=== PATIENT | female | born 1995 | race Caucasian/White ===

== ENCOUNTER 2017-01-16 15:37 | Inpatient (IN) | payer OTHER ==
[~2017-01-16] VITALS: Ht 171.4 cm; Wt 81.6 kg
[2017-01-16] MEDS ORDERED: FENTANYL PF 100 MCG/2 ML VIAL. IV PRN (16:15)
[2017-01-16] MEDS ORDERED: ONDANSETRON PF 4 MG/2 ML VIAL. IV ONE ×2 (16:15)
[2017-01-16 16:25] LABS: BILIRUBIN,URINE MODERATE (NEG); GLUCOSE,URINE NEGATIVE (NEG); NITRITE,URINE NEGATIVE (NEG); PH,URINE 6.5; PROTEIN,URINE NEGATIVE (NEG-TRACE)
[2017-01-16 16:40] LABS: BASO % 0 % (0-3); EOS % 1 % (0-3); HEMATOCRIT 43.3 % (36.0-47.0); HEMOGLOBIN 14.5 g/dL (12.0-15.5); LYMPH # 1.4 x10^3/uL (1.0-4.8); LYMPH % 13 % (24-48); MEAN CORPUSCULAR HEMOGLOBIN 30 pg (25-35); MEAN CORPUSCULAR HGB CONC 34 g/dL (31-37); MEAN CORPUSCULAR VOLUME 90 fL (79-100); MONO % 8 % (0-9); NEUT % 78 % (31-73); PLATELET COUNT 322 x10^3/uL (140-400); RED CELL DISTRIBUTION WIDTH 13.6 % (11.5-14.5); WHITE BLOOD COUNT 11.6 x10^3/uL (4.0-11.0)
[2017-01-16 16:41] LABS: BACTERIA,URINE 0 /HPF (0-FEW); RBC,URINE 0 /HPF (0-2); SQUAMOUS EPITHELIAL CELL,UR OCC /LPF; WBC,URINE OCC /HPF (0-4)
[2017-01-16 16:53] LABS: CALCIUM 9.2 mg/dL (8.5-10.1); CREATININE 0.7 mg/dL (0.6-1.0); GFR 103.7; POTASSIUM 3.8 mmol/L (3.5-5.1)
[2017-01-16 16:59] LABS: ALBUMIN 4.3 g/dL (3.4-5.0); ALBUMIN/GLOBULIN RATIO 1.1 (1.0-1.7); TOTAL BILIRUBIN 3.8 mg/dL (0.2-1.0); TOTAL PROTEIN 8.2 g/dL (6.4-8.2)
[2017-01-16 17:25] LABS: NEG OBC UR NEG; POS OBC UR POS
--- NOTE | 2017-01-16 17:53 | RAD ---
PROCEDURE Right upper quadrant abdominal ultrasound. HISTORY Right upper quadrant pain. TECHNIQUE Transabdominal imaging was performed. COMPARISON None. FINDINGS Visualized pancreas is unremarkable. Visualized aorta and IVC demonstrate normal caliber. Liver is mildly increased in echogenicity. No focal hepatic masses are identified. Right hepatic lobe measures 16.6 centimeters in length, mildly enlarged. Cholelithiasis is seen. No cholecystitis is identified. Common bile duct has normal caliber at 5 millimeters. Right kidney measures 12.6 centimeters in length. Right kidney is without evidence of obstruction or stone. IMPRESSION 1. Cholelithiasis without evidence cholecystitis. 2. Mildly echogenic, mildly enlarged liver, compatible with fatty liver disease. Electronically signed by: Marco Bloom MD (Jan 16, 2017 17:50:29)
[2017-01-16] MEDS ORDERED: ONDANSETRON PF 4 MG/2 ML VIAL. IV PRN (18:15)
--- NOTE | 2017-01-16 18:18 | PHYS DOC ---
Past Medical History Past Medical History: No Pertinent History Past Surgical History: No Surgical History Alcohol Use: Occasionally Drug Use: None Adult General Chief Complaint Chief Complaint: ABDOMINAL PAIN HPI HPI Patient is a 21 year old female who presents with abdominal pain. Patient reports 2 year history of right upper quadrant and epigastric abdominal pain, worsening significantly over the past 2 weeks. Reports nausea and vomiting several times daily, though only nausea today without vomiting. Reports worse after eating eggs. Denies fevers or chills, diarrhea or constipation, hematemesis, hematochezia or melena, dysuria or hematuria, vaginal bleeding or discharge. Denies past medical history, denies history of abdominal surgeries. Denies use of alcohol. PCP is Dr. Keys. Review of Systems Review of Systems Constitutional: Denies fever or chills HENT: Denies nasal congestion or sore throat Respiratory: Denies cough or shortness of breath Cardiovascular: Denies chest pain or edema GI: Reports abdominal pain, nausea, vomiting, denies bloody stools or diarrhea : Denies dysuria or hematuria Musculoskeletal: Denies back pain or joint pain Integument: Denies rash or skin lesions Neurologic: Denies headache, focal weakness or sensory changes Current Medications Current Medications Current Medications Medications (Trade) Dose Ordered Sig/Alexandra Start Time Stop Time Status Last Admin Dose Admin Fentanyl Citrate (Fentanyl 2ml Vial) 50 mcg PRN Q15MIN PRN 01/16/17 16:15 01/17/17 16:14 01/16/17 16:50 50 MCG Ondansetron HCl (Zofran) 4 mg 1X ONCE 01/16/17 16:15 01/16/17 16:16 DC 01/16/17 16:47 4 MG Allergies Allergies Allergies Coded Allergies Type Severity Reaction Last Updated Verified No Known Drug Allergies 01/16/17 No Physical Exam Physical Exam Constitutional: Well developed, well nourished, no acute distress, non-toxic appearance. HENT: Normocephalic, atraumatic, bilateral external ears normal, oropharynx moist, nose normal. Eyes: conjunctiva normal, no discharge. Cardiovascular: RRR, no murmurs, no edema. Lungs & Thorax: LCTAB, no wheezing, no respiratory distress. Abdomen: normal bowel sounds, soft, RUQ & epigastric tenderness without rebound/ guarding, no masses or pulsatile masses, nondistended. Skin: Warm, dry, no erythema, no rash. Back: No CVA tenderness. Extremities: No tenderness, no edema. Neurologic: Alert and oriented X 3, no focal deficits noted. Psychologic: Affect normal, judgement normal, mood normal. Current Patient Data Vital Signs Vital Signs Date Time Temp Pulse Resp B/P Pulse Ox O2 Delivery O2 Flow Rate FiO2 01/16/17 16:50 20 99 Room Air 01/16/17 15:42 97.5 73 121/77 97.5 Lab Values Laboratory Tests Test 01/16/17 15:03 01/16/17 16:15 01/16/17 16:30 01/16/17 17:13 POC Urine HCG, Qualitative Hcg positive (Negative) Urine Color Rhianna Urine Clarity Clear Urine pH 6.5 Urine Specific [employer] [place] 1.020 Urine Protein Negativemg/dL (NEG-TRACE) Urine Glucose (UA) Negativemg/dL (NEG) Urine Ketones (Stick) Negativemg/dL (NEG) Urine Blood Negative (NEG) Urine Nitrite Negative (NEG) Urine Bilirubin Moderate (NEG) Urine Urobilinogen Dipstick 1.0mg/dL (0.2 mg/dL) Urine Leukocyte Esterase Negative (NEG) Urine RBC 0/HPF (0-2) Urine WBC Occ/HPF (0-4) Urine Squamous Epithelial Cells Occ/LPF Urine Bacteria 0/HPF (0-FEW) Urine Mucus Mod/LPF White Blood Count 11.6x10^3/uL (4.0-11.0) H Red Blood Count 4.80x10^6/uL (3.50-5.40) Hemoglobin 14.5g/dL (12.0-15.5) Hematocrit 43.3% (36.0-47.0) Mean Corpuscular Volume 90fL (79-100) Mean Corpuscular Hemoglobin 30pg (25-35) Mean Corpuscular Hemoglobin Concent 34g/dL (31-37) Red Cell Distribution Width 13.6% (11.5-14.5) Platelet Count 322x10^3/uL (140-400) Neutrophils (%) (Auto) 78% (31-73) H Lymphocytes (%) (Auto) 13% (24-48) L Monocytes (%) (Auto) 8% (0-9) Eosinophils (%) (Auto) 1% (0-3) Basophils (%) (Auto) 0% (0-3) Neutrophils # (Auto) 9.0x10^3uL (1.8-7.7) H Lymphocytes # (Auto) 1.4x10^3/uL (1.0-4.8) Monocytes # (Auto) 0.9x10^3/uL (0.0-1.1) Eosinophils # (Auto) 0.1x10^3/uL (0.0-0.7) Basophils # (Auto) 0.0x10^3/uL (0.0-0.2) Maternal Serum HCG Beta Subunit < 1mIU/mL (0-6) Sodium Level 138mmol/L (136-145) Potassium Level 3.8mmol/L (3.5-5.1) Chloride Level 99mmol/L (98-107) Carbon Dioxide Level 26mmol/L (21-32) Anion Gap 13 (6-14) Blood Urea Nitrogen 10mg/dL (7-20) Creatinine 0.7mg/dL (0.6-1.0) Estimated GFR (Cockcroft-Gault) 103.7 BUN/Creatinine Ratio 14 (6-20) Glucose Level 96mg/dL (70-99) Calcium Level 9.2mg/dL (8.5-10.1) Total Bilirubin 3.8mg/dL (0.2-1.0) H Aspartate Amino Transferase (AST) 601U/L (15-37) H Alanine Aminotransferase (ALT) 490U/L (14-59) H Alkaline Phosphatase 139U/L (46-116) H Total Protein 8.2g/dL (6.4-8.2) Albumin 4.3g/dL (3.4-5.0) Albumin/Globulin Ratio 1.1 (1.0-1.7) Lipase 99U/L (73-393) Urine Test Negative (NEG) Laboratory Tests 01/16/17 16:30 Laboratory Tests 01/16/17 16:30 EKG EKG [] Radiology/Procedures Radiology/Procedures PROCEDURE: ABDOMEN LTD PROCEDURE Right upper quadrant abdominal ultrasound. HISTORY Right upper quadrant pain. TECHNIQUE Transabdominal imaging was performed. COMPARISON None. FINDINGS Visualized pancreas is unremarkable. Visualized aorta and IVC demonstrate normal caliber. Liver is mildly increased in echogenicity. No focal hepatic masses are identified. Right hepatic lobe measures 16.6 centimeters in length, mildly enlarged. Cholelithiasis is seen. No cholecystitis is identified. Common bile duct has normal caliber at 5 millimeters. Right kidney measures 12.6 centimeters in length. Right kidney is without evidence of obstruction or stone. IMPRESSION 1. Cholelithiasis without evidence cholecystitis. 2. Mildly echogenic, mildly enlarged liver, compatible with fatty liver disease. Electronically signed by: Marco Tran MD (Jan 16, 2017 17:50:29) DICTATED and SIGNED BY: MARCO TRAN MD DATE: 01/16/17 [id number][] Course & Med Decision Making Course & Med Decision Making Pertinent Labs and Imaging studies reviewed. (See chart for details) Patient presents with right upper quadrant pain and vomiting. Gave pain medication, antiemetics, IV fluids. Found to have hyperbilirubinemia and transaminitis as well as mild leukocytosis. Urine test was positive. I informed the patient and she was very shocked because she has a Mirena. She was not expecting to be . Obtained beta hCG which was undetectable. Lab ran a UA which was negative. No further evaluation for was completed at this time. I did provide these results to the patient and apologized for false positive test. Ultrasound showed cholelithiasis without cholecystitis. Consulted with Dr. Strange of general surgery who agrees to consult, also placed consult to Dr. Crisostomo of GI. Discussed with Dr. Keys who agrees to admit to inpatient status. Patient admitted in stable condition. [] Dragon Disclaimer Dragon Disclaimer This electronic medical record was generated, in whole or in part, using a voice recognition dictation system. Departure Departure Impression: Primary Impression: Cholelithiasis Additional Impressions: Hyperbilirubinemia Transaminitis Leukocytosis Nausea & vomiting Disposition: ADMITTED INPATIENT Admitting Physician: Danny Keys Condition: STABLE Problem Qualifiers LUX RAMOS MD Jan 16, 2017 18:17
--- NOTE | 2017-01-16 18:57 | ACF ---
Admission Forms Criteria GALLBLADDER OR BILE DUCT INFLAMMATION OR STONE Clinical Indications for Admission to Inpatient Care ( Place 'X' for any and all applicable criteria): Admission is indicated for patients with ANY ONE of the following(1)(2)(3)(4)(5) : [ ]I. Acute cholecystitis as indicated by ALL of the following: [ ]a) Right upper quadrant pain, mass, or tenderness [ ]b) Systemic signs of inflammation indicated by ANY ONE of the following: [ ]i) Fever [ ]ii) C-reactive protein level greater than 10 mg/L (95 nmol/L) [ ]iii) White blood cell count greater than 10,000/mm3 (10 x109/L) or less than 4000/mm3 (4 x109/L) [X]II. Inpatient admission required rather than observation care (Also use Gallbladder or Bile Duct Inflammation or Stone: Observation Care as appropriate) because of ANY ONE of the following: [ ]a) Common bile duct obstruction diagnosed [X]b) Vomiting that is severe or persistent [ ]c) Severe pain requiring acute inpatient management [ ]d) Signs of intestinal obstruction or peritonitis [A] [ ]e) Severe electrolyte abnormalities requiring inpatient care [ ]f) Absent bowel sounds with complete ileus(8) [ ]g) Hemodynamic instability [ ]h) High fever or infection requiring inpatient admission as indicated by ANY ONE of the following (9): [ ]1) Appropriate outpatient or observation care antimicrobial Treatment. unavailable, not effective, or not feasible [ ]2) Temperature greater than 104.9 degrees F (40.5 degrees C) (oral) [ ]3) Temperature greater than 103.1 degrees F (39.5 degrees C) (oral) or less than 96.8 degrees F (36 degrees C) (rectal) that does not respond to all emergency treatment measures [ ]4) Documented bacteremia [ ]i) IV fluid to replace significant ongoing losses (greater than 3 L/m2 per day) [ ]j) Percutaneous or open drainage (eg, abscess, biliary tract) procedures [ ]k) Immediate inpatient surgery [ ]l) Other condition, treatment or monitoring requiring inpatient admission [ ]III. Acute cholangitis as indicated by ALL of the following(9)(10): [ ]a) Systemic signs of inflammation indicated by ANY ONE of the following: [ ]i) Fever [ ]ii) C-reactive protein level greater than 10 mg/L (95 nmol /L) [ ]iii) White blood cell count greater than 10,000/mm3 (10 x109/L) or less than 4000/mm3 (4 x109/L) [ ]b) Evidence of common bile duct disease indicated by ANY ONE of the following: [ ]i) Total serum bilirubin level greater than or equal to 2 mg/dL (34 micromoles/L) [ ]ii) Liver function test (alkaline phosphatase (ALP), r- glutamyltransferase (GGT), aspartate aminotransferase (AST), or alanine aminotransferase (ALT)) greater than 1.5 times the upper limit of normal[B] [ ]iii) Hepatobiliary imaging showing biliary dilatation or evidence of etiology (eg, stricture, stone, previously placed stent) Extended stay beyond goal length of stay may be needed for (1)(2)): [ ]a) Bacteremia or Hemodynamic instability [ ]b) Cholecystectomy [ ]c) Other surgical procedure(24) [ ]d) Percutaneous or endoscopic ultrasound-guided cholecystostomy The original [facility] content created by [facility] has been revised. The portions of the content which have been revised are identified through the use of italic text or in bold, and [facility] has neither reviewed nor approved the modified material. All other unmodified content is copyright [facility]. Please see references footnoted in the original [facility] edition 2016 Admission Criteria Met?: Yes SINCERE MARIE Jan 16, 2017 18:57
[2017-01-16 20:40] VITALS: BP 97/59
[2017-01-16] MEDS: IV NORMAL SALINE 1000ML BAG 1,000 ML IV SCH (20:58)
[2017-01-16] MEDS: MORPHINE SULFATE 4 MG/ML DISP.SYRIN. IV PRN (20:59)
[2017-01-16 23:00] VITALS: BP 103/64
[2017-01-17 03:00] VITALS: BP 102/54
[2017-01-17] MEDS: IV NORMAL SALINE 1000ML BAG 1,000 ML IV SCH ×3 (04:49→20:53)
[2017-01-17 04:50] LABS: BASO % 1 % (0-3); EOS % 4 % (0-3); HEMATOCRIT 40.7 % (36.0-47.0); HEMOGLOBIN 13.3 g/dL (12.0-15.5); LYMPH # 1.8 x10^3/uL (1.0-4.8); LYMPH % 29 % (24-48); MEAN CORPUSCULAR HEMOGLOBIN 30 pg (25-35); MEAN CORPUSCULAR HGB CONC 33 g/dL (31-37); MEAN CORPUSCULAR VOLUME 92 fL (79-100); MONO % 11 % (0-9); NEUT % 55 % (31-73); PLATELET COUNT 269 x10^3/uL (140-400); RED BLOOD COUNT 4.44 x10^6/uL (3.50-5.40); RED CELL DISTRIBUTION WIDTH 13.6 % (11.5-14.5); WHITE BLOOD COUNT 6.3 x10^3/uL (4.0-11.0)
[2017-01-17 05:10] LABS: ALBUMIN 3.4 g/dL (3.4-5.0); CALCIUM 8.3 mg/dL (8.5-10.1); CREATININE 0.8 mg/dL (0.6-1.0); GFR 88.9; POTASSIUM 3.9 mmol/L (3.5-5.1); TOTAL BILIRUBIN 4.2 mg/dL (0.2-1.0); TOTAL PROTEIN 6.8 g/dL (6.4-8.2)
[2017-01-17 07:00] VITALS: BP 109/61
--- NOTE | 2017-01-17 10:22 | PDOC2 ---
CONSULT Date of Consult Date of Consult DATE: 01/17/17 TIME: 10:16 Reason for Consult Reason for Consult: Abdominal pain and elevated LFT's Referring Physician Referring Physician: Massimo Identification/Chief Complaint Chief Complaint Abdominal pain Source Source: Patient History of Present Illness Reason for Visit: 21 yo female came to ED with complaints of abdominal pain and nausea. Denies vomiting. Pain has been intermittent over the last 2 years. Began when she was . Pain is sharp in the epigastric region and radiates to the right upper abdomen. She denies any fever, chills diarrhea or yellowing of the eyes. Past Medical History Cardiovascular: No pertinent hx Pulmonary: No pertinent hx GI: No pertinent hx Heme/Onc: No pertinent hx Hepatobiliary: No pertinent hx Psych: No pertinent hx Rheumatologic: No pertinent hx Infectious disease: No pertinent hx ENT: No pertinent hx Renal/: No pertinent hx Endocrine: No pertinent hx Dermatology: No pertinent hx Past Surgical History Past Surgical History: No pertinent history Family History Family History: No Significant Social History No ALCOHOL: none Drugs: None Lives: with Family Current Problem List Problem List Problems Medical Problems: (1) Cholelithiasis Status: Acute (2) Hyperbilirubinemia Status: Acute (3) Leukocytosis Status: Acute (4) Nausea & vomiting Status: Acute (5) Transaminitis Status: Acute Current Medications Current Medications Current Medications Ondansetron HCl (Zofran) 4 mg 1X ONCE IV ; Start 01/16/17 at 16:15; Stop at 16:15; Status DC Fentanyl Citrate (Fentanyl 2ml Vial) 50 mcg PRN Q15MIN PRN IV PAIN GREATER THAN 3/10 Last administered on 01/16/17 16:50; Start 01/16/17 at 16:15; Stop at 16:14 Ondansetron HCl (Zofran) 4 mg 1X ONCE IV Last administered on 01/16/17 16:47 ; Start 01/16/17 at 16:15; Stop 01/16/17 at 16:16; Status DC Ondansetron HCl (Zofran) 4 mg PRN Q8HRS PRN IV NAUSEA/VOMITING; Start 01/16/17 at 18:15; Stop 01/17/17 at 18:14 Morphine Sulfate 4 mg 4 mg PRN Q2HR PRN IV PAIN Last administered on 01/16/17 20:59; Start 01/16/17 at 18:15; Stop 01/17/17 at 18:14 Sodium Chloride (Iv Sodium Chloride 0.9% 1000ml Bag) 1,000 ml @ 125 mls/hr Q8H IV Last administered on 01/17/17 04:49; Start 01/16/17 at 18:09; Stop 01/17/17 at 18:08 Allergies Allergies: Coded Allergies: No Known Drug Allergies (Unverified , 01/16/17) ROS Gastrointestinal: Yes Abdominal Pain, Yes Nausea Physical Exam General: Alert, Oriented X3, Cooperative, mild distress HEENT: Atraumatic, PERRLA, EOMI Lungs: Clear to auscultation, Normal air movement Heart: Regular rate, No murmurs Abdomen: Normal bowel sounds, Soft, Other (TTP epigastrium to RUQ) Extremities: No edema Skin: No significant lesion Neuro: Normal speech Psych/Mental Status: Mental status NL Vitals VITALS Vital Signs Date Time Temp Pulse Resp B/P Pulse Ox O2 Delivery O2 Flow Rate FiO2 01/17/17 07:00 98.1 64 16 109/61 98 Room Air 98.1 Labs Labs Laboratory Tests Test 01/16/17 15:03 01/16/17 16:15 01/16/17 16:30 01/16/17 17:13 Bedside Urine HCG, Qualitative Hcg positive (Negative) Urine Color Rhianna Urine Clarity Clear Urine pH 6.5 Urine Specific [place] 1.020 Urine Protein Negativemg/dL (NEG-TRACE) Urine Glucose (UA) Negativemg/dL (NEG) Urine Ketones (Stick) Negativemg/dL (NEG) Urine Blood Negative (NEG) Urine Nitrite Negative (NEG) Urine Bilirubin Moderate (NEG) Urine Urobilinogen Dipstick 1.0mg/dL (0.2 mg/dL) Urine Leukocyte Esterase Negative (NEG) Urine RBC 0/HPF (0-2) Urine WBC Occ/HPF (0-4) Urine Squamous Epithelial Cells Occ/LPF Urine Bacteria 0/HPF (0-FEW) Urine Mucus Mod/LPF White Blood Count 11.6x10^3/uL (4.0-11.0) Red Blood Count 4.80x10^6/uL (3.50-5.40) Hemoglobin 14.5g/dL (12.0-15.5) Hematocrit 43.3% (36.0-47.0) Mean Corpuscular Volume 90fL (79-100) Mean Corpuscular Hemoglobin 30pg (25-35) Mean Corpuscular Hemoglobin Concent 34g/dL (31-37) Red Cell Distribution Width 13.6% (11.5-14.5) Platelet Count 322x10^3/uL (140-400) Neutrophils (%) (Auto) 78% (31-73) Lymphocytes (%) (Auto) 13% (24-48) Monocytes (%) (Auto) 8% (0-9) Eosinophils (%) (Auto) 1% (0-3) Basophils (%) (Auto) 0% (0-3) Neutrophils # (Auto) 9.0x10^3uL (1.8-7.7) Lymphocytes # (Auto) 1.4x10^3/uL (1.0-4.8) Monocytes # (Auto) 0.9x10^3/uL (0.0-1.1) Eosinophils # (Auto) 0.1x10^3/uL (0.0-0.7) Basophils # (Auto) 0.0x10^3/uL (0.0-0.2) Maternal Serum HCG Beta Subunit < 1mIU/mL (0-6) Sodium Level 138mmol/L (136-145) Potassium Level 3.8mmol/L (3.5-5.1) Chloride Level 99mmol/L (98-107) Carbon Dioxide Level 26mmol/L (21-32) Anion Gap 13 (6-14) Blood Urea Nitrogen 10mg/dL (7-20) Creatinine 0.7mg/dL (0.6-1.0) Estimated GFR (Cockcroft-Gault) 103.7 BUN/Creatinine Ratio 14 (6-20) Glucose Level 96mg/dL (70-99) Calcium Level 9.2mg/dL (8.5-10.1) Total Bilirubin 3.8mg/dL (0.2-1.0) Aspartate Amino Transf (AST/SGOT) 601U/L (15-37) Alanine Aminotransferase (ALT/SGPT) 490U/L (14-59) Alkaline Phosphatase 139U/L (46-116) Total Protein 8.2g/dL (6.4-8.2) Albumin 4.3g/dL (3.4-5.0) Albumin/Globulin Ratio 1.1 (1.0-1.7) Lipase 99U/L (73-393) Urine Test Negative (NEG) Test 01/17/17 03:45 White Blood Count 6.3x10^3/uL (4.0-11.0) Red Blood Count 4.44x10^6/uL (3.50-5.40) Hemoglobin 13.3g/dL (12.0-15.5) Hematocrit 40.7% (36.0-47.0) Mean Corpuscular Volume 92fL (79-100) Mean Corpuscular Hemoglobin 30pg (25-35) Mean Corpuscular Hemoglobin Concent 33g/dL (31-37) Red Cell Distribution Width 13.6% (11.5-14.5) Platelet Count 269x10^3/uL (140-400) Neutrophils (%) (Auto) 55% (31-73) Lymphocytes (%) (Auto) 29% (24-48) Monocytes (%) (Auto) 11% (0-9) Eosinophils (%) (Auto) 4% (0-3) Basophils (%) (Auto) 1% (0-3) Neutrophils # (Auto) 3.5x10^3uL (1.8-7.7) Lymphocytes # (Auto) 1.8x10^3/uL (1.0-4.8) Monocytes # (Auto) 0.7x10^3/uL (0.0-1.1) Eosinophils # (Auto) 0.3x10^3/uL (0.0-0.7) Basophils # (Auto) 0.0x10^3/uL (0.0-0.2) Sodium Level 139mmol/L (136-145) Potassium Level 3.9mmol/L (3.5-5.1) Chloride Level 104mmol/L (98-107) Carbon Dioxide Level 25mmol/L (21-32) Anion Gap 10 (6-14) Blood Urea Nitrogen 8mg/dL (7-20) Creatinine 0.8mg/dL (0.6-1.0) Estimated GFR (Cockcroft-Gault) 88.9 BUN/Creatinine Ratio 10 (6-20) Glucose Level 81mg/dL (70-99) Calcium Level 8.3mg/dL (8.5-10.1) Total Bilirubin 4.2mg/dL (0.2-1.0) Direct Bilirubin 2.7mg/dL (0.0-0.2) Aspartate Amino Transf (AST/SGOT) 395U/L (15-37) Alanine Aminotransferase (ALT/SGPT) 493U/L (14-59) Alkaline Phosphatase 172U/L (46-116) Total Protein 6.8g/dL (6.4-8.2) Albumin 3.4g/dL (3.4-5.0) Albumin/Globulin Ratio 1.0 (1.0-1.7) Laboratory Tests Test 01/16/17 15:03 01/16/17 16:15 01/16/17 16:30 01/16/17 17:13 Bedside Urine HCG, Qualitative Hcg positive (Negative) Urine Color Rhianna Urine Clarity Clear Urine pH 6.5 Urine Specific [place] 1.020 Urine Protein Negativemg/dL (NEG-TRACE) Urine Glucose (UA) Negativemg/dL (NEG) Urine Ketones (Stick) Negativemg/dL (NEG) Urine Blood Negative (NEG) Urine Nitrite Negative (NEG) Urine Bilirubin Moderate (NEG) Urine Urobilinogen Dipstick 1.0mg/dL (0.2 mg/dL) Urine Leukocyte Esterase Negative (NEG) Urine RBC 0/HPF (0-2) Urine WBC Occ/HPF (0-4) Urine Squamous Epithelial Cells Occ/LPF Urine Bacteria 0/HPF (0-FEW) Urine Mucus Mod/LPF White Blood Count 11.6x10^3/uL (4.0-11.0) Red Blood Count 4.80x10^6/uL (3.50-5.40) Hemoglobin 14.5g/dL (12.0-15.5) Hematocrit 43.3% (36.0-47.0) Mean Corpuscular Volume 90fL (79-100) Mean Corpuscular Hemoglobin 30pg (25-35) Mean Corpuscular Hemoglobin Concent 34g/dL (31-37) Red Cell Distribution Width 13.6% (11.5-14.5) Platelet Count 322x10^3/uL (140-400) Neutrophils (%) (Auto) 78% (31-73) Lymphocytes (%) (Auto) 13% (24-48) Monocytes (%) (Auto) 8% (0-9) Eosinophils (%) (Auto) 1% (0-3) Basophils (%) (Auto) 0% (0-3) Neutrophils # (Auto) 9.0x10^3uL (1.8-7.7) Lymphocytes # (Auto) 1.4x10^3/uL (1.0-4.8) Monocytes # (Auto) 0.9x10^3/uL (0.0-1.1) Eosinophils # (Auto) 0.1x10^3/uL (0.0-0.7) Basophils # (Auto) 0.0x10^3/uL (0.0-0.2) Maternal Serum HCG Beta Subunit < 1mIU/mL (0-6) Sodium Level 138mmol/L (136-145) Potassium Level 3.8mmol/L (3.5-5.1) Chloride Level 99mmol/L (98-107) Carbon Dioxide Level 26mmol/L (21-32) Anion Gap 13 (6-14) Blood Urea Nitrogen 10mg/dL (7-20) Creatinine 0.7mg/dL (0.6-1.0) Estimated GFR (Cockcroft-Gault) 103.7 BUN/Creatinine Ratio 14 (6-20) Glucose Level 96mg/dL (70-99) Calcium Level 9.2mg/dL (8.5-10.1) Total Bilirubin 3.8mg/dL (0.2-1.0) Aspartate Amino Transf (AST/SGOT) 601U/L (15-37) Alanine Aminotransferase (ALT/SGPT) 490U/L (14-59) Alkaline Phosphatase 139U/L (46-116) Total Protein 8.2g/dL (6.4-8.2) Albumin 4.3g/dL (3.4-5.0) Albumin/Globulin Ratio 1.1 (1.0-1.7) Lipase 99U/L (73-393) Urine Test Negative (NEG) Test 01/17/17 03:45 White Blood Count 6.3x10^3/uL (4.0-11.0) Red Blood Count 4.44x10^6/uL (3.50-5.40) Hemoglobin 13.3g/dL (12.0-15.5) Hematocrit 40.7% (36.0-47.0) Mean Corpuscular Volume 92fL (79-100) Mean Corpuscular Hemoglobin 30pg (25-35) Mean Corpuscular Hemoglobin Concent 33g/dL (31-37) Red Cell Distribution Width 13.6% (11.5-14.5) Platelet Count 269x10^3/uL (140-400) Neutrophils (%) (Auto) 55% (31-73) Lymphocytes (%) (Auto) 29% (24-48) Monocytes (%) (Auto) 11% (0-9) Eosinophils (%) (Auto) 4% (0-3) Basophils (%) (Auto) 1% (0-3) Neutrophils # (Auto) 3.5x10^3uL (1.8-7.7) Lymphocytes # (Auto) 1.8x10^3/uL (1.0-4.8) Monocytes # (Auto) 0.7x10^3/uL (0.0-1.1) Eosinophils # (Auto) 0.3x10^3/uL (0.0-0.7) Basophils # (Auto) 0.0x10^3/uL (0.0-0.2) Sodium Level 139mmol/L (136-145) Potassium Level 3.9mmol/L (3.5-5.1) Chloride Level 104mmol/L (98-107) Carbon Dioxide Level 25mmol/L (21-32) Anion Gap 10 (6-14) Blood Urea Nitrogen 8mg/dL (7-20) Creatinine 0.8mg/dL (0.6-1.0) Estimated GFR (Cockcroft-Gault) 88.9 BUN/Creatinine Ratio 10 (6-20) Glucose Level 81mg/dL (70-99) Calcium Level 8.3mg/dL (8.5-10.1) Total Bilirubin 4.2mg/dL (0.2-1.0) Direct Bilirubin 2.7mg/dL (0.0-0.2) Aspartate Amino Transf (AST/SGOT) 395U/L (15-37) Alanine Aminotransferase (ALT/SGPT) 493U/L (14-59) Alkaline Phosphatase 172U/L (46-116) Total Protein 6.8g/dL (6.4-8.2) Albumin 3.4g/dL (3.4-5.0) Albumin/Globulin Ratio 1.0 (1.0-1.7) Images Images U/S showing simple gallstones without inflammation, no dilated bile ducts. Assessment/Plan Assessment/Plan Abdominal pain with elevated liver enzymes and bilirubin, gallstones without cholecystitis or dilated bile ducts Possible primary liver disease, will await GI recommendations Will follow. MILLY SHEPHERD MD Jan 17, 2017 10:22
[2017-01-17 11:00] VITALS: BP 116/71
[2017-01-17] MEDS: MORPHINE SULFATE 4 MG/ML DISP.SYRIN. IV PRN (11:26)
--- NOTE | 2017-01-17 11:59 | PDOC2 ---
CONSULT Date of Consult Date of Consult DATE: 01/17/17 TIME: 11:43 Reason for Consult Reason for Consult: Abdominal pain/abnormal LFT's Referring Physician Referring Physician: Dr. Keys Source Source: Chart review, Patient History of Present Illness Reason for Visit: 21 y/o female we are asked to see re: abdominal pain and abnormal LFT's/ imaging. ~2-year history of intermittent "attacks" of epigastric pain, usually pc, and described as "twisty", not clearly colicky. These have been increasing in frequency. This time with scleral icterus. On imaging, has gallstones, though not a dilated CBD or signs of cholecystitis. Surgery has seen and questions primary liver issue. No prior h/o liver disease nor high-risk behaviors or prior transfusion. Family history is noteworthy for GB disease in mother and grandmother. Does feel some better this AM after analgesia. No h/o heartburn, dysphagia, PUD, or pancreatic issues. Former smoker. Occasional alcohol. Occasional NSAID use. No diarrhea, constipation, hematochezia or melena. Occasional nausea and vomiting with her attacks. Wt/ appetite stable. No FH of colon polyps or CRC. She has not had prior scopes. Past Medical History Past Medical History Negative for any chronic problems. Past Surgical History Past Surgical History Denies. Family History Family History: No Significant Social History Quit ALCOHOL: none Drugs: None Lives: with Family Current Problem List Problem List Problems Medical Problems: (1) Cholelithiasis Status: Acute (2) Hyperbilirubinemia Status: Acute (3) Leukocytosis Status: Acute (4) Nausea & vomiting Status: Acute (5) Transaminitis Status: Acute Current Medications Current Medications Current Medications Ondansetron HCl (Zofran) 4 mg 1X ONCE IV ; Start 01/16/17 at 16:15; Stop at 16:15; Status DC Fentanyl Citrate (Fentanyl 2ml Vial) 50 mcg PRN Q15MIN PRN IV PAIN GREATER THAN 3/10 Last administered on 01/16/17 16:50; Start 01/16/17 at 16:15; Stop at 16:14 Ondansetron HCl (Zofran) 4 mg 1X ONCE IV Last administered on 01/16/17 16:47 ; Start 01/16/17 at 16:15; Stop 01/16/17 at 16:16; Status DC Ondansetron HCl (Zofran) 4 mg PRN Q8HRS PRN IV NAUSEA/VOMITING; Start 01/16/17 at 18:15; Stop 01/17/17 at 18:14 Morphine Sulfate 4 mg 4 mg PRN Q2HR PRN IV PAIN Last administered on 01/17/17 11:26; Start 01/16/17 at 18:15; Stop 01/17/17 at 18:14 Sodium Chloride (Iv Sodium Chloride 0.9% 1000ml Bag) 1,000 ml @ 125 mls/hr Q8H IV Last administered on 01/17/17 11:24; Start 01/16/17 at 18:09; Stop 01/17/17 at 18:08 Allergies Allergies: Coded Allergies: No Known Drug Allergies (Unverified , 01/16/17) ROS Review of System 10-point review otherwise negative. Physical Exam General: Alert, Oriented X3, Cooperative, No acute distress HEENT: Other (sclerae mildly icteric) Lungs: Clear to auscultation, Normal air movement Heart: Regular rate, Normal S1, Normal S2, No murmurs Abdomen: Normal bowel sounds, Soft, No tenderness, No hepatosplenomegaly, No masses Extremities: No cyanosis, No edema Skin: Other (mild jaundice) Neuro: Normal speech, Normal tone, Sensation intact, Cranial nerves 3-12 NL, Reflexes 2+ Psych/Mental Status: Mental status NL, Mood NL MUSCULOSKELETAL: No deformity, No swelling Vitals VITALS Vital Signs Date Time Temp Pulse Resp B/P Pulse Ox O2 Delivery O2 Flow Rate FiO2 01/17/17 11:26 Room Air 01/17/17 11:00 98.1 96 20 116/71 96 98.1 Labs Labs Laboratory Tests Test 01/16/17 15:03 01/16/17 16:15 01/16/17 16:30 01/16/17 17:13 Bedside Urine HCG, Qualitative Hcg positive (Negative) Urine Color Rhianna Urine Clarity Clear Urine pH 6.5 Urine Specific [place] 1.020 Urine Protein Negativemg/dL (NEG-TRACE) Urine Glucose (UA) Negativemg/dL (NEG) Urine Ketones (Stick) Negativemg/dL (NEG) Urine Blood Negative (NEG) Urine Nitrite Negative (NEG) Urine Bilirubin Moderate (NEG) Urine Urobilinogen Dipstick 1.0mg/dL (0.2 mg/dL) Urine Leukocyte Esterase Negative (NEG) Urine RBC 0/HPF (0-2) Urine WBC Occ/HPF (0-4) Urine Squamous Epithelial Cells Occ/LPF Urine Bacteria 0/HPF (0-FEW) Urine Mucus Mod/LPF White Blood Count 11.6x10^3/uL (4.0-11.0) Red Blood Count 4.80x10^6/uL (3.50-5.40) Hemoglobin 14.5g/dL (12.0-15.5) Hematocrit 43.3% (36.0-47.0) Mean Corpuscular Volume 90fL (79-100) Mean Corpuscular Hemoglobin 30pg (25-35) Mean Corpuscular Hemoglobin Concent 34g/dL (31-37) Red Cell Distribution Width 13.6% (11.5-14.5) Platelet Count 322x10^3/uL (140-400) Neutrophils (%) (Auto) 78% (31-73) Lymphocytes (%) (Auto) 13% (24-48) Monocytes (%) (Auto) 8% (0-9) Eosinophils (%) (Auto) 1% (0-3) Basophils (%) (Auto) 0% (0-3) Neutrophils # (Auto) 9.0x10^3uL (1.8-7.7) Lymphocytes # (Auto) 1.4x10^3/uL (1.0-4.8) Monocytes # (Auto) 0.9x10^3/uL (0.0-1.1) Eosinophils # (Auto) 0.1x10^3/uL (0.0-0.7) Basophils # (Auto) 0.0x10^3/uL (0.0-0.2) Maternal Serum HCG Beta Subunit < 1mIU/mL (0-6) Sodium Level 138mmol/L (136-145) Potassium Level 3.8mmol/L (3.5-5.1) Chloride Level 99mmol/L (98-107) Carbon Dioxide Level 26mmol/L (21-32) Anion Gap 13 (6-14) Blood Urea Nitrogen 10mg/dL (7-20) Creatinine 0.7mg/dL (0.6-1.0) Estimated GFR (Cockcroft-Gault) 103.7 BUN/Creatinine Ratio 14 (6-20) Glucose Level 96mg/dL (70-99) Calcium Level 9.2mg/dL (8.5-10.1) Total Bilirubin 3.8mg/dL (0.2-1.0) Aspartate Amino Transf (AST/SGOT) 601U/L (15-37) Alanine Aminotransferase (ALT/SGPT) 490U/L (14-59) Alkaline Phosphatase 139U/L (46-116) Total Protein 8.2g/dL (6.4-8.2) Albumin 4.3g/dL (3.4-5.0) Albumin/Globulin Ratio 1.1 (1.0-1.7) Lipase 99U/L (73-393) Urine Test Negative (NEG) Test 01/17/17 03:45 White Blood Count 6.3x10^3/uL (4.0-11.0) Red Blood Count 4.44x10^6/uL (3.50-5.40) Hemoglobin 13.3g/dL (12.0-15.5) Hematocrit 40.7% (36.0-47.0) Mean Corpuscular Volume 92fL (79-100) Mean Corpuscular Hemoglobin 30pg (25-35) Mean Corpuscular Hemoglobin Concent 33g/dL (31-37) Red Cell Distribution Width 13.6% (11.5-14.5) Platelet Count 269x10^3/uL (140-400) Neutrophils (%) (Auto) 55% (31-73) Lymphocytes (%) (Auto) 29% (24-48) Monocytes (%) (Auto) 11% (0-9) Eosinophils (%) (Auto) 4% (0-3) Basophils (%) (Auto) 1% (0-3) Neutrophils # (Auto) 3.5x10^3uL (1.8-7.7) Lymphocytes # (Auto) 1.8x10^3/uL (1.0-4.8) Monocytes # (Auto) 0.7x10^3/uL (0.0-1.1) Eosinophils # (Auto) 0.3x10^3/uL (0.0-0.7) Basophils # (Auto) 0.0x10^3/uL (0.0-0.2) Sodium Level 139mmol/L (136-145) Potassium Level 3.9mmol/L (3.5-5.1) Chloride Level 104mmol/L (98-107) Carbon Dioxide Level 25mmol/L (21-32) Anion Gap 10 (6-14) Blood Urea Nitrogen 8mg/dL (7-20) Creatinine 0.8mg/dL (0.6-1.0) Estimated GFR (Cockcroft-Gault) 88.9 BUN/Creatinine Ratio 10 (6-20) Glucose Level 81mg/dL (70-99) Calcium Level 8.3mg/dL (8.5-10.1) Total Bilirubin 4.2mg/dL (0.2-1.0) Direct Bilirubin 2.7mg/dL (0.0-0.2) Aspartate Amino Transf (AST/SGOT) 395U/L (15-37) Alanine Aminotransferase (ALT/SGPT) 493U/L (14-59) Alkaline Phosphatase 172U/L (46-116) Total Protein 6.8g/dL (6.4-8.2) Albumin 3.4g/dL (3.4-5.0) Albumin/Globulin Ratio 1.0 (1.0-1.7) Laboratory Tests Test 01/16/17 15:03 01/16/17 16:15 01/16/17 16:30 01/16/17 17:13 Bedside Urine HCG, Qualitative Hcg positive (Negative) Urine Color Rhianna Urine Clarity Clear Urine pH 6.5 Urine Specific [place] 1.020 Urine Protein Negativemg/dL (NEG-TRACE) Urine Glucose (UA) Negativemg/dL (NEG) Urine Ketones (Stick) Negativemg/dL (NEG) Urine Blood Negative (NEG) Urine Nitrite Negative (NEG) Urine Bilirubin Moderate (NEG) Urine Urobilinogen Dipstick 1.0mg/dL (0.2 mg/dL) Urine Leukocyte Esterase Negative (NEG) Urine RBC 0/HPF (0-2) Urine WBC Occ/HPF (0-4) Urine Squamous Epithelial Cells Occ/LPF Urine Bacteria 0/HPF (0-FEW) Urine Mucus Mod/LPF White Blood Count 11.6x10^3/uL (4.0-11.0) Red Blood Count 4.80x10^6/uL (3.50-5.40) Hemoglobin 14.5g/dL (12.0-15.5) Hematocrit 43.3% (36.0-47.0) Mean Corpuscular Volume 90fL (79-100) Mean Corpuscular Hemoglobin 30pg (25-35) Mean Corpuscular Hemoglobin Concent 34g/dL (31-37) Red Cell Distribution Width 13.6% (11.5-14.5) Platelet Count 322x10^3/uL (140-400) Neutrophils (%) (Auto) 78% (31-73) Lymphocytes (%) (Auto) 13% (24-48) Monocytes (%) (Auto) 8% (0-9) Eosinophils (%) (Auto) 1% (0-3) Basophils (%) (Auto) 0% (0-3) Neutrophils # (Auto) 9.0x10^3uL (1.8-7.7) Lymphocytes # (Auto) 1.4x10^3/uL (1.0-4.8) Monocytes # (Auto) 0.9x10^3/uL (0.0-1.1) Eosinophils # (Auto) 0.1x10^3/uL (0.0-0.7) Basophils # (Auto) 0.0x10^3/uL (0.0-0.2) Maternal Serum HCG Beta Subunit < 1mIU/mL (0-6) Sodium Level 138mmol/L (136-145) Potassium Level 3.8mmol/L (3.5-5.1) Chloride Level 99mmol/L (98-107) Carbon Dioxide Level 26mmol/L (21-32) Anion Gap 13 (6-14) Blood Urea Nitrogen 10mg/dL (7-20) Creatinine 0.7mg/dL (0.6-1.0) Estimated GFR (Cockcroft-Gault) 103.7 BUN/Creatinine Ratio 14 (6-20) Glucose Level 96mg/dL (70-99) Calcium Level 9.2mg/dL (8.5-10.1) Total Bilirubin 3.8mg/dL (0.2-1.0) Aspartate Amino Transf (AST/SGOT) 601U/L (15-37) Alanine Aminotransferase (ALT/SGPT) 490U/L (14-59) Alkaline Phosphatase 139U/L (46-116) Total Protein 8.2g/dL (6.4-8.2) Albumin 4.3g/dL (3.4-5.0) Albumin/Globulin Ratio 1.1 (1.0-1.7) Lipase 99U/L (73-393) Urine Test Negative (NEG) Test 01/17/17 03:45 White Blood Count 6.3x10^3/uL (4.0-11.0) Red Blood Count 4.44x10^6/uL (3.50-5.40) Hemoglobin 13.3g/dL (12.0-15.5) Hematocrit 40.7% (36.0-47.0) Mean Corpuscular Volume 92fL (79-100) Mean Corpuscular Hemoglobin 30pg (25-35) Mean Corpuscular Hemoglobin Concent 33g/dL (31-37) Red Cell Distribution Width 13.6% (11.5-14.5) Platelet Count 269x10^3/uL (140-400) Neutrophils (%) (Auto) 55% (31-73) Lymphocytes (%) (Auto) 29% (24-48) Monocytes (%) (Auto) 11% (0-9) Eosinophils (%) (Auto) 4% (0-3) Basophils (%) (Auto) 1% (0-3) Neutrophils # (Auto) 3.5x10^3uL (1.8-7.7) Lymphocytes # (Auto) 1.8x10^3/uL (1.0-4.8) Monocytes # (Auto) 0.7x10^3/uL (0.0-1.1) Eosinophils # (Auto) 0.3x10^3/uL (0.0-0.7) Basophils # (Auto) 0.0x10^3/uL (0.0-0.2) Sodium Level 139mmol/L (136-145) Potassium Level 3.9mmol/L (3.5-5.1) Chloride Level 104mmol/L (98-107) Carbon Dioxide Level 25mmol/L (21-32) Anion Gap 10 (6-14) Blood Urea Nitrogen 8mg/dL (7-20) Creatinine 0.8mg/dL (0.6-1.0) Estimated GFR (Cockcroft-Gault) 88.9 BUN/Creatinine Ratio 10 (6-20) Glucose Level 81mg/dL (70-99) Calcium Level 8.3mg/dL (8.5-10.1) Total Bilirubin 4.2mg/dL (0.2-1.0) Direct Bilirubin 2.7mg/dL (0.0-0.2) Aspartate Amino Transf (AST/SGOT) 395U/L (15-37) Alanine Aminotransferase (ALT/SGPT) 493U/L (14-59) Alkaline Phosphatase 172U/L (46-116) Total Protein 6.8g/dL (6.4-8.2) Albumin 3.4g/dL (3.4-5.0) Albumin/Globulin Ratio 1.0 (1.0-1.7) Bilirubin mostly direct. Images Images On sonogram: IMPRESSION 1. Cholelithiasis without evidence cholecystitis. 2. Mildly echogenic, mildly enlarged liver, compatible with fatty liver disease. Assessment/Plan Assessment/Plan IMP: 1. While may have NAFLD, this is painless and doubt any viral issues. Current problem seems more likely biliary to me, just not enough time to have dilated her duct (if stone still in duct--certainly had at least transient choledocholithiasis). REC: 1. Cholecystectomy/IOC 2. Will check viral serologies, but doubt will be positive. 3. Could consider MRCP, but not if goes to OR. 4. Monitor LFT's, clinically. Antibiotics if febrile. --other pending. Thank you for allowing me to assist in the care of this patient. Please call if questions. SVETLANA STEELE MD Jan 17, 2017 11:59
--- NOTE | 2017-01-17 12:15 | HP ---
ADMIT DATE: 01/17/2017 CHIEF COMPLAINT: Abdominal pain. HISTORY OF PRESENT ILLNESS: The patient is a pleasant 21-year-old healthy female presented with abdominal pain. While in the ER, she noted to have symptomatic gallstone, she has been admitted. We have consulted general surgery. PAST MEDICAL HISTORY: Depression, anxiety, and obsessive compulsive behavior. ALLERGIES: None. FAMILY HISTORY: Diabetes. SOCIAL HISTORY: She does not drink, smoke or take drugs. MEDICATIONS: Reviewed, please refer to the MRAD. REVIEW OF SYSTEMS: GENERAL: No history of weight change, weakness or fevers. SKIN: No bruising, hair changes or rashes. EYES: No blurred, double or loss of vision. NOSE AND THROAT: No history of nosebleeds, hoarseness or sore throat. HEART: No history of palpitations, chest pain or shortness of breath on exertion. LUNGS: Denies cough, hemoptysis, wheezing or shortness of breath. GASTROINTESTINAL: Complains of abdominal pain. GENITOURINARY: No history of frequency, urgency, hesitancy or nocturia. NEUROLOGIC: Denies history of numbness, tingling, tremor or weakness. PSYCHIATRIC: No history of panic, anxiety or depression. ENDOCRINE: No history of heat or cold intolerance, polyuria or polydipsia. EXTREMITIES: Denies muscle weakness, joint pain, pain on walking or stiffness. PHYSICAL EXAMINATION: VITAL SIGNS: Stable. Temperature afebrile, pulse 62, respirations 18, blood pressure 109/61, O2 sat 98% on room air. GENERAL: She is alert, weak, complaining of pain. HEART: Normal S1, S2. LUNGS: Clear. ABDOMEN: Soft. Decreased bowel sounds, tender in the right upper quadrant. EXTREMITIES: No edema. SKIN: No rashes. PSYCHIATRIC: She is a little anxious. VASCULAR: Good capillary refill. ENDOCRINE: No thyromegaly. LYMPHATICS: No cervical nodes. HEMATOPOIETIC: No bruising. LABORATORY DATA: White count 12, hemoglobin 14, platelets are 322. Electrolytes: Sodium 138, potassium 3.8, chloride 99, bicarbonate 26, BUN 10, creatinine 0.7, glucose 96, AST high at 601, ALT high at 490, alkaline phosphatase is also high at ____. ASSESSMENT AND PLAN: Symptomatic gallstones. The patient has been admitted. We are consulting General Surgery and GI, p.r.n. antiemetics, IV fluids, p.r.n. narcotics. LUTHER GREGG DO DR: CECILY/virgie JOB#: [id number] / [id number]
[2017-01-17 15:00] VITALS: BP 105/51
[2017-01-17 19:30] VITALS: BP 96/54
[2017-01-17] MEDS: MORPHINE SULFATE 2 MG/ML DISP.SYRIN. IV PRN (20:53)
[2017-01-17 23:21] VITALS: BP 106/62
[2017-01-18] VITALS (12 sets, daily range): BP systolic 82–110; BP diastolic 41–62
[2017-01-18 02:12] LABS: HEP A IGM ABDY Negative (Negative)
[2017-01-18] MEDS: IV NORMAL SALINE 1000ML BAG 1,000 ML IV SCH (04:57)
[2017-01-18 05:38] LABS: BASO % 1 % (0-3); EOS % 3 % (0-3); HEMATOCRIT 39.2 % (36.0-47.0); HEMOGLOBIN 12.7 g/dL (12.0-15.5); LYMPH # 1.7 x10^3/uL (1.0-4.8); LYMPH % 26 % (24-48); MEAN CORPUSCULAR HEMOGLOBIN 30 pg (25-35); MEAN CORPUSCULAR HGB CONC 33 g/dL (31-37); MEAN CORPUSCULAR VOLUME 92 fL (79-100); MONO % 8 % (0-9); NEUT % 62 % (31-73); PLATELET COUNT 238 x10^3/uL (140-400); RED BLOOD COUNT 4.25 x10^6/uL (3.50-5.40); RED CELL DISTRIBUTION WIDTH 13.3 % (11.5-14.5); WHITE BLOOD COUNT 6.4 x10^3/uL (4.0-11.0)
[2017-01-18 05:55] LABS: ALBUMIN 3.2 g/dL (3.4-5.0); CALCIUM 8.1 mg/dL (8.5-10.1); CREATININE 0.7 mg/dL (0.6-1.0); GFR 103.7; POTASSIUM 4.1 mmol/L (3.5-5.1); TOTAL BILIRUBIN 1.8 mg/dL (0.2-1.0); TOTAL PROTEIN 6.5 g/dL (6.4-8.2)
[2017-01-18] MEDS ORDERED: CEFAZOLIN 2GM PREMIX 50 ML IV ONE (07:00)
[2017-01-18] MEDS: MORPHINE SULFATE 2 MG/ML DISP.SYRIN. IV PRN ×2 (07:59→23:22)
[2017-01-18] MEDS ORDERED: ONDANSETRON PF 4 MG/2 ML VIAL. IV PRN ×2 (08:00→08:45)
--- NOTE | 2017-01-18 08:05 | PDOC ---
SURGICAL PROGRESS NOTE Subjective Still having ruq abd pain but less then yesterday. Vital Signs Vital Signs Date Time Temp Pulse Resp B/P Pulse Ox O2 Delivery O2 Flow Rate FiO2 01/18/17 07:59 Room Air 01/18/17 03:26 98.1 70 16 110/62 96 98.1 I&O Intake and Output 01/18/17 06:59 Intake Total 2746 ml Balance 2746 ml IV Total 2746 ml # Voids 6 PATIENT HAS A العراقي: No General: Alert, Oriented X3, Cooperative, mild distress Abdomen: Normal bowel sounds, Soft, Other (TTP RUQ) Labs Laboratory Tests Test 01/16/17 15:03 01/16/17 16:15 01/16/17 16:30 01/16/17 17:13 Bedside Urine HCG, Qualitative Hcg positive (Negative) Urine Color Rhianna Urine Clarity Clear Urine pH 6.5 Urine Specific [place] 1.020 Urine Protein Negativemg/dL (NEG-TRACE) Urine Glucose (UA) Negativemg/dL (NEG) Urine Ketones (Stick) Negativemg/dL (NEG) Urine Blood Negative (NEG) Urine Nitrite Negative (NEG) Urine Bilirubin Moderate (NEG) Urine Urobilinogen Dipstick 1.0mg/dL (0.2 mg/dL) Urine Leukocyte Esterase Negative (NEG) Urine RBC 0/HPF (0-2) Urine WBC Occ/HPF (0-4) Urine Squamous Epithelial Cells Occ/LPF Urine Bacteria 0/HPF (0-FEW) Urine Mucus Mod/LPF White Blood Count 11.6x10^3/uL (4.0-11.0) Red Blood Count 4.80x10^6/uL (3.50-5.40) Hemoglobin 14.5g/dL (12.0-15.5) Hematocrit 43.3% (36.0-47.0) Mean Corpuscular Volume 90fL (79-100) Mean Corpuscular Hemoglobin 30pg (25-35) Mean Corpuscular Hemoglobin Concent 34g/dL (31-37) Red Cell Distribution Width 13.6% (11.5-14.5) Platelet Count 322x10^3/uL (140-400) Neutrophils (%) (Auto) 78% (31-73) Lymphocytes (%) (Auto) 13% (24-48) Monocytes (%) (Auto) 8% (0-9) Eosinophils (%) (Auto) 1% (0-3) Basophils (%) (Auto) 0% (0-3) Neutrophils # (Auto) 9.0x10^3uL (1.8-7.7) Lymphocytes # (Auto) 1.4x10^3/uL (1.0-4.8) Monocytes # (Auto) 0.9x10^3/uL (0.0-1.1) Eosinophils # (Auto) 0.1x10^3/uL (0.0-0.7) Basophils # (Auto) 0.0x10^3/uL (0.0-0.2) Maternal Serum HCG Beta Subunit < 1mIU/mL (0-6) Sodium Level 138mmol/L (136-145) Potassium Level 3.8mmol/L (3.5-5.1) Chloride Level 99mmol/L (98-107) Carbon Dioxide Level 26mmol/L (21-32) Anion Gap 13 (6-14) Blood Urea Nitrogen 10mg/dL (7-20) Creatinine 0.7mg/dL (0.6-1.0) Estimated GFR (Cockcroft-Gault) 103.7 BUN/Creatinine Ratio 14 (6-20) Glucose Level 96mg/dL (70-99) Calcium Level 9.2mg/dL (8.5-10.1) Total Bilirubin 3.8mg/dL (0.2-1.0) Aspartate Amino Transf (AST/SGOT) 601U/L (15-37) Alanine Aminotransferase (ALT/SGPT) 490U/L (14-59) Alkaline Phosphatase 139U/L (46-116) Total Protein 8.2g/dL (6.4-8.2) Albumin 4.3g/dL (3.4-5.0) Albumin/Globulin Ratio 1.1 (1.0-1.7) Lipase 99U/L (73-393) Urine Test Negative (NEG) Test 01/17/17 03:45 01/18/17 05:04 White Blood Count 6.3x10^3/uL (4.0-11.0) 6.4x10^3/uL (4.0-11.0) Red Blood Count 4.44x10^6/uL (3.50-5.40) 4.25x10^6/uL (3.50-5.40) Hemoglobin 13.3g/dL (12.0-15.5) 12.7g/dL (12.0-15.5) Hematocrit 40.7% (36.0-47.0) 39.2% (36.0-47.0) Mean Corpuscular Volume 92fL (79-100) 92fL (79-100) Mean Corpuscular Hemoglobin 30pg (25-35) 30pg (25-35) Mean Corpuscular Hemoglobin Concent 33g/dL (31-37) 33g/dL (31-37) Red Cell Distribution Width 13.6% (11.5-14.5) 13.3% (11.5-14.5) Platelet Count 269x10^3/uL (140-400) 238x10^3/uL (140-400) Neutrophils (%) (Auto) 55% (31-73) 62% (31-73) Lymphocytes (%) (Auto) 29% (24-48) 26% (24-48) Monocytes (%) (Auto) 11% (0-9) 8% (0-9) Eosinophils (%) (Auto) 4% (0-3) 3% (0-3) Basophils (%) (Auto) 1% (0-3) 1% (0-3) Neutrophils # (Auto) 3.5x10^3uL (1.8-7.7) 3.9x10^3uL (1.8-7.7) Lymphocytes # (Auto) 1.8x10^3/uL (1.0-4.8) 1.7x10^3/uL (1.0-4.8) Monocytes # (Auto) 0.7x10^3/uL (0.0-1.1) 0.5x10^3/uL (0.0-1.1) Eosinophils # (Auto) 0.3x10^3/uL (0.0-0.7) 0.2x10^3/uL (0.0-0.7) Basophils # (Auto) 0.0x10^3/uL (0.0-0.2) 0.0x10^3/uL (0.0-0.2) Sodium Level 139mmol/L (136-145) 139mmol/L (136-145) Potassium Level 3.9mmol/L (3.5-5.1) 4.1mmol/L (3.5-5.1) Chloride Level 104mmol/L (98-107) 106mmol/L (98-107) Carbon Dioxide Level 25mmol/L (21-32) 21mmol/L (21-32) Anion Gap 10 (6-14) 12 (6-14) Blood Urea Nitrogen 8mg/dL (7-20) 13mg/dL (7-20) Creatinine 0.8mg/dL (0.6-1.0) 0.7mg/dL (0.6-1.0) Estimated GFR (Cockcroft-Gault) 88.9 103.7 BUN/Creatinine Ratio 10 (6-20) 19 (6-20) Glucose Level 81mg/dL (70-99) 64mg/dL (70-99) Calcium Level 8.3mg/dL (8.5-10.1) 8.1mg/dL (8.5-10.1) Total Bilirubin 4.2mg/dL (0.2-1.0) 1.8mg/dL (0.2-1.0) Direct Bilirubin 2.7mg/dL (0.0-0.2) Aspartate Amino Transf (AST/SGOT) 395U/L (15-37) 103U/L (15-37) Alanine Aminotransferase (ALT/SGPT) 493U/L (14-59) 284U/L (14-59) Alkaline Phosphatase 172U/L (46-116) 163U/L (46-116) Total Protein 6.8g/dL (6.4-8.2) 6.5g/dL (6.4-8.2) Albumin 3.4g/dL (3.4-5.0) 3.2g/dL (3.4-5.0) Albumin/Globulin Ratio 1.0 (1.0-1.7) 1.0 (1.0-1.7) Hepatitis A IgM Antibody Negative (Negative) Hepatitis B Surface Antigen Negative (Negative) Hepatitis B Core IgM Antibody Negative (Negative) Hepatitis C Antibody <0.1s/co ratio (0.0-0.9) Laboratory Tests Test 01/18/17 05:04 White Blood Count 6.4x10^3/uL (4.0-11.0) Red Blood Count 4.25x10^6/uL (3.50-5.40) Hemoglobin 12.7g/dL (12.0-15.5) Hematocrit 39.2% (36.0-47.0) Mean Corpuscular Volume 92fL (79-100) Mean Corpuscular Hemoglobin 30pg (25-35) Mean Corpuscular Hemoglobin Concent 33g/dL (31-37) Red Cell Distribution Width 13.3% (11.5-14.5) Platelet Count 238x10^3/uL (140-400) Neutrophils (%) (Auto) 62% (31-73) Lymphocytes (%) (Auto) 26% (24-48) Monocytes (%) (Auto) 8% (0-9) Eosinophils (%) (Auto) 3% (0-3) Basophils (%) (Auto) 1% (0-3) Neutrophils # (Auto) 3.9x10^3uL (1.8-7.7) Lymphocytes # (Auto) 1.7x10^3/uL (1.0-4.8) Monocytes # (Auto) 0.5x10^3/uL (0.0-1.1) Eosinophils # (Auto) 0.2x10^3/uL (0.0-0.7) Basophils # (Auto) 0.0x10^3/uL (0.0-0.2) Sodium Level 139mmol/L (136-145) Potassium Level 4.1mmol/L (3.5-5.1) Chloride Level 106mmol/L (98-107) Carbon Dioxide Level 21mmol/L (21-32) Anion Gap 12 (6-14) Blood Urea Nitrogen 13mg/dL (7-20) Creatinine 0.7mg/dL (0.6-1.0) Estimated GFR (Cockcroft-Gault) 103.7 BUN/Creatinine Ratio 19 (6-20) Glucose Level 64mg/dL (70-99) Calcium Level 8.1mg/dL (8.5-10.1) Total Bilirubin 1.8mg/dL (0.2-1.0) Aspartate Amino Transf (AST/SGOT) 103U/L (15-37) Alanine Aminotransferase (ALT/SGPT) 284U/L (14-59) Alkaline Phosphatase 163U/L (46-116) Total Protein 6.5g/dL (6.4-8.2) Albumin 3.2g/dL (3.4-5.0) Albumin/Globulin Ratio 1.0 (1.0-1.7) Problem List Problems Medical Problems: (1) Cholelithiasis Status: Acute (2) Hyperbilirubinemia Status: Acute (3) Leukocytosis Status: Acute (4) Nausea & vomiting Status: Acute (5) Transaminitis Status: Acute Assessment/Plan Cholelithiasis, likely passed GS improving LFT's and TBili Plan L/S Merly with IOC today. Problems: MILLY SHEPHERD MD Jan 18, 2017 08:05
[2017-01-18] MEDS ORDERED: IV RINGERS,LACTATED 1000ML 1,000 ML IV SCH (08:38)
[2017-01-18] MEDS ORDERED: LIDOCAINE 1% 1 ML SYRINGE. ID PRN (08:45)
[2017-01-18] MEDS ORDERED: PROCHLORPERAZINE 10 MG/2 ML VIAL. IV PRN (08:45)
[2017-01-18] MEDS ORDERED: MORPHINE SULFATE 2 MG/ML DISP.SYRIN. IV PRN (08:45)
[2017-01-18] MEDS ORDERED: FENTANYL PF 100 MCG/2 ML VIAL. IV PRN (08:45)
[2017-01-18] MEDS: IV DEXTROSE 5%-LACT RINGERS 1,000 ML IV SCH ×3 (08:59→23:19)
[2017-01-18] MEDS ORDERED: MIDAZOLAM HCL/PF 2 MG/2 ML VIAL. ONE (09:18)
[2017-01-18] MEDS ORDERED: FENTANYL PF 100 MCG/2 ML VIAL. ONE ×2 (09:45→11:35)
[2017-01-18] MEDS ORDERED: PROPOFOL 20 ML IV ONE ×2 (09:45→11:56)
[2017-01-18] MEDS ORDERED: ROCURONIUM 50 MG/5 ML VIAL. ONE (09:45)
[2017-01-18] MEDS ORDERED: ISOFLURANE > 120 MINUTES. IH ONE (09:45)
[2017-01-18] MEDS ORDERED: LIDOCAINE 2% 100 MG/5 ML SYRINGE. ONE (09:46)
[2017-01-18] MEDS ORDERED: DEXAMETHASONE SOD PHOS 20 MG/5 ML VIAL. ONE (09:46)
[2017-01-18] MEDS ORDERED: ONDANSETRON PF 4 MG/2 ML VIAL. ONE (09:46)
--- NOTE | 2017-01-18 10:07 | PDOC ---
G I PROGRESS NOTE Subjective In Surgery; not seen. Objective Case discussed with Dr. Strange. Physical Exam NO PE. Review of Relevant I have reviewed the following items ang (where applicable) has been applied. Labs Laboratory Tests Test 01/16/17 15:03 01/16/17 16:15 01/16/17 16:30 01/16/17 17:13 Bedside Urine HCG, Qualitative Hcg positive (Negative) Urine Color Rhianna Urine Clarity Clear Urine pH 6.5 Urine Specific [place] 1.020 Urine Protein Negativemg/dL (NEG-TRACE) Urine Glucose (UA) Negativemg/dL (NEG) Urine Ketones (Stick) Negativemg/dL (NEG) Urine Blood Negative (NEG) Urine Nitrite Negative (NEG) Urine Bilirubin Moderate (NEG) Urine Urobilinogen Dipstick 1.0mg/dL (0.2 mg/dL) Urine Leukocyte Esterase Negative (NEG) Urine RBC 0/HPF (0-2) Urine WBC Occ/HPF (0-4) Urine Squamous Epithelial Cells Occ/LPF Urine Bacteria 0/HPF (0-FEW) Urine Mucus Mod/LPF White Blood Count 11.6x10^3/uL (4.0-11.0) Red Blood Count 4.80x10^6/uL (3.50-5.40) Hemoglobin 14.5g/dL (12.0-15.5) Hematocrit 43.3% (36.0-47.0) Mean Corpuscular Volume 90fL (79-100) Mean Corpuscular Hemoglobin 30pg (25-35) Mean Corpuscular Hemoglobin Concent 34g/dL (31-37) Red Cell Distribution Width 13.6% (11.5-14.5) Platelet Count 322x10^3/uL (140-400) Neutrophils (%) (Auto) 78% (31-73) Lymphocytes (%) (Auto) 13% (24-48) Monocytes (%) (Auto) 8% (0-9) Eosinophils (%) (Auto) 1% (0-3) Basophils (%) (Auto) 0% (0-3) Neutrophils # (Auto) 9.0x10^3uL (1.8-7.7) Lymphocytes # (Auto) 1.4x10^3/uL (1.0-4.8) Monocytes # (Auto) 0.9x10^3/uL (0.0-1.1) Eosinophils # (Auto) 0.1x10^3/uL (0.0-0.7) Basophils # (Auto) 0.0x10^3/uL (0.0-0.2) Maternal Serum HCG Beta Subunit < 1mIU/mL (0-6) Sodium Level 138mmol/L (136-145) Potassium Level 3.8mmol/L (3.5-5.1) Chloride Level 99mmol/L (98-107) Carbon Dioxide Level 26mmol/L (21-32) Anion Gap 13 (6-14) Blood Urea Nitrogen 10mg/dL (7-20) Creatinine 0.7mg/dL (0.6-1.0) Estimated GFR (Cockcroft-Gault) 103.7 BUN/Creatinine Ratio 14 (6-20) Glucose Level 96mg/dL (70-99) Calcium Level 9.2mg/dL (8.5-10.1) Total Bilirubin 3.8mg/dL (0.2-1.0) Aspartate Amino Transf (AST/SGOT) 601U/L (15-37) Alanine Aminotransferase (ALT/SGPT) 490U/L (14-59) Alkaline Phosphatase 139U/L (46-116) Total Protein 8.2g/dL (6.4-8.2) Albumin 4.3g/dL (3.4-5.0) Albumin/Globulin Ratio 1.1 (1.0-1.7) Lipase 99U/L (73-393) Urine Test Negative (NEG) Test 01/17/17 03:45 01/18/17 05:04 White Blood Count 6.3x10^3/uL (4.0-11.0) 6.4x10^3/uL (4.0-11.0) Red Blood Count 4.44x10^6/uL (3.50-5.40) 4.25x10^6/uL (3.50-5.40) Hemoglobin 13.3g/dL (12.0-15.5) 12.7g/dL (12.0-15.5) Hematocrit 40.7% (36.0-47.0) 39.2% (36.0-47.0) Mean Corpuscular Volume 92fL (79-100) 92fL (79-100) Mean Corpuscular Hemoglobin 30pg (25-35) 30pg (25-35) Mean Corpuscular Hemoglobin Concent 33g/dL (31-37) 33g/dL (31-37) Red Cell Distribution Width 13.6% (11.5-14.5) 13.3% (11.5-14.5) Platelet Count 269x10^3/uL (140-400) 238x10^3/uL (140-400) Neutrophils (%) (Auto) 55% (31-73) 62% (31-73) Lymphocytes (%) (Auto) 29% (24-48) 26% (24-48) Monocytes (%) (Auto) 11% (0-9) 8% (0-9) Eosinophils (%) (Auto) 4% (0-3) 3% (0-3) Basophils (%) (Auto) 1% (0-3) 1% (0-3) Neutrophils # (Auto) 3.5x10^3uL (1.8-7.7) 3.9x10^3uL (1.8-7.7) Lymphocytes # (Auto) 1.8x10^3/uL (1.0-4.8) 1.7x10^3/uL (1.0-4.8) Monocytes # (Auto) 0.7x10^3/uL (0.0-1.1) 0.5x10^3/uL (0.0-1.1) Eosinophils # (Auto) 0.3x10^3/uL (0.0-0.7) 0.2x10^3/uL (0.0-0.7) Basophils # (Auto) 0.0x10^3/uL (0.0-0.2) 0.0x10^3/uL (0.0-0.2) Sodium Level 139mmol/L (136-145) 139mmol/L (136-145) Potassium Level 3.9mmol/L (3.5-5.1) 4.1mmol/L (3.5-5.1) Chloride Level 104mmol/L (98-107) 106mmol/L (98-107) Carbon Dioxide Level 25mmol/L (21-32) 21mmol/L (21-32) Anion Gap 10 (6-14) 12 (6-14) Blood Urea Nitrogen 8mg/dL (7-20) 13mg/dL (7-20) Creatinine 0.8mg/dL (0.6-1.0) 0.7mg/dL (0.6-1.0) Estimated GFR (Cockcroft-Gault) 88.9 103.7 BUN/Creatinine Ratio 10 (6-20) 19 (6-20) Glucose Level 81mg/dL (70-99) 64mg/dL (70-99) Calcium Level 8.3mg/dL (8.5-10.1) 8.1mg/dL (8.5-10.1) Total Bilirubin 4.2mg/dL (0.2-1.0) 1.8mg/dL (0.2-1.0) Direct Bilirubin 2.7mg/dL (0.0-0.2) Aspartate Amino Transf (AST/SGOT) 395U/L (15-37) 103U/L (15-37) Alanine Aminotransferase (ALT/SGPT) 493U/L (14-59) 284U/L (14-59) Alkaline Phosphatase 172U/L (46-116) 163U/L (46-116) Total Protein 6.8g/dL (6.4-8.2) 6.5g/dL (6.4-8.2) Albumin 3.4g/dL (3.4-5.0) 3.2g/dL (3.4-5.0) Albumin/Globulin Ratio 1.0 (1.0-1.7) 1.0 (1.0-1.7) Hepatitis A IgM Antibody Negative (Negative) Hepatitis B Surface Antigen Negative (Negative) Hepatitis B Core IgM Antibody Negative (Negative) Hepatitis C Antibody <0.1s/co ratio (0.0-0.9) Laboratory Tests Test 01/18/17 05:04 White Blood Count 6.4x10^3/uL (4.0-11.0) Red Blood Count 4.25x10^6/uL (3.50-5.40) Hemoglobin 12.7g/dL (12.0-15.5) Hematocrit 39.2% (36.0-47.0) Mean Corpuscular Volume 92fL (79-100) Mean Corpuscular Hemoglobin 30pg (25-35) Mean Corpuscular Hemoglobin Concent 33g/dL (31-37) Red Cell Distribution Width 13.3% (11.5-14.5) Platelet Count 238x10^3/uL (140-400) Neutrophils (%) (Auto) 62% (31-73) Lymphocytes (%) (Auto) 26% (24-48) Monocytes (%) (Auto) 8% (0-9) Eosinophils (%) (Auto) 3% (0-3) Basophils (%) (Auto) 1% (0-3) Neutrophils # (Auto) 3.9x10^3uL (1.8-7.7) Lymphocytes # (Auto) 1.7x10^3/uL (1.0-4.8) Monocytes # (Auto) 0.5x10^3/uL (0.0-1.1) Eosinophils # (Auto) 0.2x10^3/uL (0.0-0.7) Basophils # (Auto) 0.0x10^3/uL (0.0-0.2) Sodium Level 139mmol/L (136-145) Potassium Level 4.1mmol/L (3.5-5.1) Chloride Level 106mmol/L (98-107) Carbon Dioxide Level 21mmol/L (21-32) Anion Gap 12 (6-14) Blood Urea Nitrogen 13mg/dL (7-20) Creatinine 0.7mg/dL (0.6-1.0) Estimated GFR (Cockcroft-Gault) 103.7 BUN/Creatinine Ratio 19 (6-20) Glucose Level 64mg/dL (70-99) Calcium Level 8.1mg/dL (8.5-10.1) Total Bilirubin 1.8mg/dL (0.2-1.0) Aspartate Amino Transf (AST/SGOT) 103U/L (15-37) Alanine Aminotransferase (ALT/SGPT) 284U/L (14-59) Alkaline Phosphatase 163U/L (46-116) Total Protein 6.5g/dL (6.4-8.2) Albumin 3.2g/dL (3.4-5.0) Albumin/Globulin Ratio 1.0 (1.0-1.7) LFT's better rapidly. Hepatitis markers negative. Medications Current Medications Ondansetron HCl (Zofran) 4 mg 1X ONCE IV ; Start 01/16/17 at 16:15; Stop at 16:15; Status DC Fentanyl Citrate (Fentanyl 2ml Vial) 50 mcg PRN Q15MIN PRN IV PAIN GREATER THAN 3/10 Last administered on 01/16/17 16:50; Start 01/16/17 at 16:15; Stop at 16:14; Status DC Ondansetron HCl (Zofran) 4 mg 1X ONCE IV Last administered on 01/16/17 16:47 ; Start 01/16/17 at 16:15; Stop 01/16/17 at 16:16; Status DC Ondansetron HCl (Zofran) 4 mg PRN Q8HRS PRN IV NAUSEA/VOMITING Last administered on 01/17/17 12:38; Start 01/16/17 at 18:15; Stop 01/17/17 at 18:14; Status DC Morphine Sulfate 4 mg 4 mg PRN Q2HR PRN IV PAIN Last administered on 01/17/17 11:26; Start 01/16/17 at 18:15; Stop 01/17/17 at 18:14; Status DC Sodium Chloride 1,000 ml @ 125 mls/hr Q8H IV Last administered on 01/17/17 11: 24; Start 01/16/17 at 18:09; Stop 01/17/17 at 18:08; Status DC Sodium Chloride (Iv Sodium Chloride 0.9% 1000ml Bag) 1,000 ml @ 125 mls/hr Q8H IV Last administered on 01/18/17 04:57; Start 01/17/17 at 19:00; Stop 01/18/17 at 08:07; Status DC Morphine Sulfate 2 mg PRN Q2HR PRN IV PAIN Last administered on 01/18/17 07:59 ; Start 01/17/17 at 18:45 Ondansetron HCl 4 mg 4 mg PRN Q6HRS PRN IV NAUSEA/VOMITING Last administered on 01/18/17 08:00; Start 01/18/17 at 08:00 Cefazolin Sodium/ Dextrose 50 ml @ 100 mls/hr 1X ONCE IV ; Start 01/18/17 at 07 :00; Stop 01/18/17 at 08:08; Status DC Dextrose/Lactated Ringer's (Iv D5%-Lr) 1,000 ml @ 100 mls/hr Q10H IV Last administered on 01/18/17 08:59; Start 01/18/17 at 07:00 Ondansetron HCl (Zofran) 0.4 mg PRN Q6HRS PRN IV NAUSEA/VOMITING; Start at 08:45; Stop 01/19/17 at 08:44 Fentanyl Citrate (Fentanyl 2ml Vial) 25 mcg PRN Q5MIN PRN IV MILD PAIN; Start 01/18/17 at 08:45; Stop 01/19/17 at 08:44 Fentanyl Citrate (Fentanyl 2ml Vial) 50 mcg PRN Q5MIN PRN IV MODERATE PAIN; Start 01/18/17 at 08:45; Stop 01/19/17 at 08:44 Morphine Sulfate 1 mg 1 mg PRN Q10MIN PRN IV SEVERE PAIN; Start 01/18/17 at 08: 45; Stop 01/19/17 at 08:44 Lactated Ringer's (Iv Lactated Ringers) 1,000 ml @ 0 mls/hr Q0M IV Last administered on 01/18/17 09:58; Start 01/18/17 at 08:38; Stop 01/18/17 at 20:37 Lidocaine HCl 2 ml PRN 1X PRN ID PRIOR TO IV START; Start 01/18/17 at 08:45; Stop 01/19/17 at 08:44 Hydromorphone HCl (Dilaudid) 0.5 mg PRN Q10MIN PRN IV SEV PAIN, Second choice; Start 01/18/17 at 08:45; Stop 01/19/17 at 08:44 Prochlorperazine Edisylate (Compazine) 5 mg PACU PRN PRN IV NAUSEA, MRX1; Start 01/18/17 at 08:45; Stop 01/19/17 at 08:44 Midazolam HCl (Versed) 2 mg STK-MED ONCE .ROUTE ; Start 01/18/17 at 09:18; Stop 01/18/17 at 09:19; Status DC Fentanyl Citrate (Fentanyl 2ml Vial) 100 mcg STK-MED ONCE .ROUTE ; Start at 09:45; Stop 01/18/17 at 09:46; Status DC Rocuronium [place] (Zemuron) 50 mg STK-MED ONCE .ROUTE ; Start 01/18/17 at 09:45 ; Stop 01/18/17 at 09:46; Status DC Isoflurane 90 ml 90 ml STK-MED ONCE IH ; Start 01/18/17 at 09:45; Stop 01/18/17 at 09:46; Status DC Propofol (Diprivan) 20 ml @ As Directed STK-MED ONCE IV ; Start 01/18/17 at 09:45 ; Stop 01/18/17 at 09:46; Status DC Dexamethasone Sodium Phosphate (Decadron) 20 mg STK-MED ONCE .ROUTE ; Start 01/18 at 09:46; Stop 01/18/17 at 09:47; Status DC Ondansetron HCl (Zofran) 4 mg STK-MED ONCE .ROUTE ; Start 01/18/17 at 09:46; Stop 01/18/17 at 09:47; Status DC Lidocaine HCl (Lidocaine HCl 2% Abboject) 100 mg STK-MED ONCE .ROUTE ; Start 01/18/17 at 09:46; Stop 01/18/17 at 09:47; Status DC Vitals/I & O Vital Sign - Last 24 Hours 01/17/17 01/17/17 01/17/17 01/17/17 11:00 11:26 12:10 15:00 Temp 98.1 98.6 98.1 98.6 Pulse 96 66 Resp 20 20 B/P 116/71 105/51 Pulse Ox 96 97 O2 Delivery Room Air Room Air Room Air Room Air 01/17/17 01/17/17 01/17/17 01/17/17 19:30 20:30 20:53 23:21 Temp 98.4 98.1 98.4 98.1 Pulse 65 74 Resp 18 16 B/P 96/54 106/62 Pulse Ox 99 96 O2 Delivery Room Air Room Air Room Air Room Air 01/18/17 01/18/17 01/18/17 01/18/17 03:26 07:00 07:59 08:39 Temp 98.1 98.3 98.1 98.3 Pulse 70 76 Resp 16 20 B/P 110/62 98/54 Pulse Ox 96 97 O2 Delivery Room Air Room Air Room Air Room Air 01/18/17 10:02 Temp 98.2 98.2 Pulse 72 Resp 20 B/P 117/58 Pulse Ox 99 O2 Delivery Room Air Intake and Output 01/17/17 01/17/17 01/18/17 15:00 23:00 07:00 Intake Total 2746 ml Balance 2746 ml Problem List Problems Medical Problems: (1) Cholelithiasis Status: Acute (2) Hyperbilirubinemia Status: Acute (3) Leukocytosis Status: Acute (4) Nausea & vomiting Status: Acute (5) Transaminitis Status: Acute Assessment Cholelithiasis; at least transiently had CBD stone. Hopefully has passed. Plan of Care Note Agree with OR. Await findings. SVETLANA STEELE MD Jan 18, 2017 10:07
[2017-01-18] MEDS ORDERED: SURGICEL HEMOSTAT 4X8 EACH. ONE (10:27)
[2017-01-18] MEDS ORDERED: IOHEXOL 300 MG/ML 50 ML VIAL. ONE (10:27)
[2017-01-18] MEDS ORDERED: BUPIVACAINE-EPI 0.25%-1:200000 MPF 30 ML VIAL. ONE (10:28)
[2017-01-18] MEDS ORDERED: GLUCAGON,HUMAN RECOMBINANT 1 MG/ML VIAL. ONE (11:20)
[2017-01-18] MEDS ORDERED: LIDOCAINE 1% PF 30 ML VIAL. ONE (11:22)
--- NOTE | 2017-01-18 11:40 | RAD ---
EXAM: Intraoperative cholangiogram. HISTORY: Cholecystectomy. COMPARISON: Read fluoroscopic images of the abdomen were obtained during an intraoperative cholangiogram. The total fluoroscopy time was 52 seconds.. FINDINGS: There is intrahepatic and extrahepatic Kermit ductal dilatation. There is a filling defect within the distal common bile duct proximal to the ampulla, the appearance of which favors a stone. IMPRESSION: Intrahepatic and extrahepatic K[place]it ductal dilatation with a filling defect within the distal common duct proximal to the ampulla, appearance of which favors a stone.
[2017-01-18] MEDS ORDERED: MORPHINE SULFATE 10 MG/ML VIAL. ONE (11:58)
[2017-01-18] MEDS: FENTANYL PF 100 MCG/2 ML VIAL. IV PRN ×3 (12:11→12:58)
[2017-01-18] MEDS: HYDROMORPHONE 2 MG/ML VIAL. IV PRN ×4 (12:33→13:16)
--- NOTE | 2017-01-18 14:42 | OP ---
DATE OF SURGERY: 01/18/2017 PREOPERATIVE DIAGNOSES: Symptomatic cholelithiasis with elevated liver functions. POSTOPERATIVE DIAGNOSES: Symptomatic cholelithiasis with elevated liver functions, choledocholithiasis. PROCEDURE: Laparoscopic cholecystectomy with intraoperative cholangiogram. SURGEON: Lenard Shepherd M.D. INDICATIONS: The patient is a 21-year-old female who was admitted to the hospital with right upper quadrant abdominal pain. Ultrasound showing gallstones, no dilated duct, but she did have elevated bilirubin and LFTs. These trended down over 24 hours. Procedure of laparoscopic cholecystectomy was explained to the patient in detail. Risks, benefits were also discussed including bleeding, infection, injury to intraabdominal contents, possibly necessitating further open operations. Alternatives of this procedure were also discussed with the patient who seemed to understand and gave verbal and written consent to have the procedure performed. DESCRIPTION OF PROCEDURE: The patient was taken to the operating room and placed in the supine position, general anesthesia was initiated. Once the patient was asleep and intubated, her abdomen was prepped and draped in usual sterile fashion using ChloraPrep. An area just below the umbilicus injected 0.25% Marcaine with epinephrine. Incision was made with an 11 blade scalpel and a Veress needle was placed within the abdomen. Pneumoperitoneum was achieved. Once this was completed, an 11 mm port was placed and a 5 mm camera was placed within the abdomen. Abdomen was inspected. No other abnormalities were noted. At this point, three 5 mm ports were then placed in the epigastrium and 2 in the right upper quadrant under direct visualization. The dome of the gallbladder was grasped and retracted cephalad. There were a few adhesions to the gallbladder. These were taken down with blunt dissection down to the triangle of Calot. The infundibulum was grasped and retracted laterally exposing the triangle of Calot. Adherent tissues of the triangle were taken down with blunt dissection exposing the cystic duct and cystic artery was noted. The cystic duct was quite dilated. The cystic artery was doubly clipped. Because of the size of the cystic duct, the epigastric 5 mm port was changed out for a 12 mm port to allow for larger clip process maintenance technician. Clip was placed on the gallbladder side on the cystic duct. The cystic duct was then partially opened with EndoShears scissors and a cholangiogram catheter was placed through the anterior abdominal wall into the cystic duct, clipped into place and cholangiogram was shot, which showed good retrograde flow into hepatic radicals without any obstruction down to basically it appeared to be the sphincter of Oddi but no spillage of contrast into the duodenum. Multiple attempts to flush, an amp of glucagon was given IV, this was allowed to circulate and another cholangiogram was shot, which did not change the issue of not spilling any contrast into the duodenum. A 5 mL of 1% lidocaine were injected into the cystic duct. This was allowed to set for one minute and then another cholangiogram was shot. At this point, it did show a very thin line of contrast from this common bile duct into the duodenum. At this point, attempts to express this obstruction were aborted. The cholangiogram catheter was removed. The duct was clipped with Hem-o-brenda clip and transected. The gallbladder was taken off the liver with hook electrocautery, placed in EndoCatch bag and removed from the umbilicus. Right upper quadrant was irrigated and suctioned dry. Hemostasis seemed to be appropriate and the pneumoperitoneum was reduced. All ports were removed. Fascial defect at the umbilicus closed with [id number] 0 Vicryl suture and the skin was reapproximated at all port sites with 4-0 subcuticular Monocryl. Mastisol, Steri-Strips and Band-Aids were applied as dressings. The patient was awakened, extubated in the operating room, taken to recovery in stable condition. All sponge, instrument counts listed as correct. Estimated blood loss 20 mL. LENARD SHEPHERD MD DR: KAREN/virgie JOB#: [id number] / [id number]
--- NOTE | 2017-01-18 14:49 | PDOC ---
PROGRESS NOTES Chief Complaint Chief Complaint Epigastric and RUQ pain History of Present Illness History of Present Illness Ms. Santizo was s/p her cholecystectomy when she was visited. She appeared to have tolerated the procedure well. She did not appear to have pain out of proportion to the procedure. The incision did not appear erythematous or exudative. The trochar sites were dry and intact. Vitals Vitals Vital Signs Date Time Temp Pulse Resp B/P Pulse Ox O2 Delivery O2 Flow Rate FiO2 01/18/17 13:16 97 Room Air 01/18/17 13:14 97.1 73 14 109/54 2 97.1 Physical Exam General: Alert, Cooperative Heart: Regular rate, Normal S1, Normal S2, No murmurs Lungs: Clear, Other (No chest retractions were present.) Abdomen: Soft, No masses Extremities: No cyanosis, No tenderness/swelling Skin: No rashes, No breakdown, Other (mild jaundice) Labs LABS Laboratory Tests Test 01/18/17 05:04 White Blood Count 6.4x10^3/uL (4.0-11.0) Red Blood Count 4.25x10^6/uL (3.50-5.40) Hemoglobin 12.7g/dL (12.0-15.5) Hematocrit 39.2% (36.0-47.0) Mean Corpuscular Volume 92fL (79-100) Mean Corpuscular Hemoglobin 30pg (25-35) Mean Corpuscular Hemoglobin Concent 33g/dL (31-37) Red Cell Distribution Width 13.3% (11.5-14.5) Platelet Count 238x10^3/uL (140-400) Neutrophils (%) (Auto) 62% (31-73) Lymphocytes (%) (Auto) 26% (24-48) Monocytes (%) (Auto) 8% (0-9) Eosinophils (%) (Auto) 3% (0-3) Basophils (%) (Auto) 1% (0-3) Neutrophils # (Auto) 3.9x10^3uL (1.8-7.7) Lymphocytes # (Auto) 1.7x10^3/uL (1.0-4.8) Monocytes # (Auto) 0.5x10^3/uL (0.0-1.1) Eosinophils # (Auto) 0.2x10^3/uL (0.0-0.7) Basophils # (Auto) 0.0x10^3/uL (0.0-0.2) Sodium Level 139mmol/L (136-145) Potassium Level 4.1mmol/L (3.5-5.1) Chloride Level 106mmol/L (98-107) Carbon Dioxide Level 21mmol/L (21-32) Anion Gap 12 (6-14) Blood Urea Nitrogen 13mg/dL (7-20) Creatinine 0.7mg/dL (0.6-1.0) Estimated GFR (Cockcroft-Gault) 103.7 BUN/Creatinine Ratio 19 (6-20) Glucose Level 64mg/dL (70-99) Calcium Level 8.1mg/dL (8.5-10.1) Total Bilirubin 1.8mg/dL (0.2-1.0) Aspartate Amino Transf (AST/SGOT) 103U/L (15-37) Alanine Aminotransferase (ALT/SGPT) 284U/L (14-59) Alkaline Phosphatase 163U/L (46-116) Total Protein 6.5g/dL (6.4-8.2) Albumin 3.2g/dL (3.4-5.0) Albumin/Globulin Ratio 1.0 (1.0-1.7) Review of Systems Review of Systems Review of systems was not completed as the patient was still under the effects of anesthesia. Assessment and Plan Assessmemt and Plan Problems Medical Problems: (1) Cholelithiasis Status: Acute (2) Hyperbilirubinemia Status: Acute (3) Leukocytosis Status: Acute (4) Nausea & vomiting Status: Acute (5) Transaminitis Status: Acute Assessment: Ms. Santizo is a 21 year old female who presented with epigastric and RUQ abdominal pain and is s/p cholecystectomy. Plan: 1. Check incision and monitor for erythematous or exudative changes 2. Follow bilirubin - if continues to elevate use ERCP 3. Pain, nausea, and vomiting management -fentanyl, ondansetron 4. Discussed case with surgeon 5. Appreciate consultation from GI, surgery Problems: Comment Review of Relevant I have reviewed the following items ang (where applicable) has been applied. Labs Laboratory Tests Test 01/16/17 15:03 01/16/17 16:15 01/16/17 16:30 01/16/17 17:13 Bedside Urine HCG, Qualitative Hcg positive (Negative) Urine Color Rhianna Urine Clarity Clear Urine pH 6.5 Urine Specific [place] 1.020 Urine Protein Negativemg/dL (NEG-TRACE) Urine Glucose (UA) Negativemg/dL (NEG) Urine Ketones (Stick) Negativemg/dL (NEG) Urine Blood Negative (NEG) Urine Nitrite Negative (NEG) Urine Bilirubin Moderate (NEG) Urine Urobilinogen Dipstick 1.0mg/dL (0.2 mg/dL) Urine Leukocyte Esterase Negative (NEG) Urine RBC 0/HPF (0-2) Urine WBC Occ/HPF (0-4) Urine Squamous Epithelial Cells Occ/LPF Urine Bacteria 0/HPF (0-FEW) Urine Mucus Mod/LPF White Blood Count 11.6x10^3/uL (4.0-11.0) Red Blood Count 4.80x10^6/uL (3.50-5.40) Hemoglobin 14.5g/dL (12.0-15.5) Hematocrit 43.3% (36.0-47.0) Mean Corpuscular Volume 90fL (79-100) Mean Corpuscular Hemoglobin 30pg (25-35) Mean Corpuscular Hemoglobin Concent 34g/dL (31-37) Red Cell Distribution Width 13.6% (11.5-14.5) Platelet Count 322x10^3/uL (140-400) Neutrophils (%) (Auto) 78% (31-73) Lymphocytes (%) (Auto) 13% (24-48) Monocytes (%) (Auto) 8% (0-9) Eosinophils (%) (Auto) 1% (0-3) Basophils (%) (Auto) 0% (0-3) Neutrophils # (Auto) 9.0x10^3uL (1.8-7.7) Lymphocytes # (Auto) 1.4x10^3/uL (1.0-4.8) Monocytes # (Auto) 0.9x10^3/uL (0.0-1.1) Eosinophils # (Auto) 0.1x10^3/uL (0.0-0.7) Basophils # (Auto) 0.0x10^3/uL (0.0-0.2) Maternal Serum HCG Beta Subunit < 1mIU/mL (0-6) Sodium Level 138mmol/L (136-145) Potassium Level 3.8mmol/L (3.5-5.1) Chloride Level 99mmol/L (98-107) Carbon Dioxide Level 26mmol/L (21-32) Anion Gap 13 (6-14) Blood Urea Nitrogen 10mg/dL (7-20) Creatinine 0.7mg/dL (0.6-1.0) Estimated GFR (Cockcroft-Gault) 103.7 BUN/Creatinine Ratio 14 (6-20) Glucose Level 96mg/dL (70-99) Calcium Level 9.2mg/dL (8.5-10.1) Total Bilirubin 3.8mg/dL (0.2-1.0) Aspartate Amino Transf (AST/SGOT) 601U/L (15-37) Alanine Aminotransferase (ALT/SGPT) 490U/L (14-59) Alkaline Phosphatase 139U/L (46-116) Total Protein 8.2g/dL (6.4-8.2) Albumin 4.3g/dL (3.4-5.0) Albumin/Globulin Ratio 1.1 (1.0-1.7) Lipase 99U/L (73-393) Urine Test Negative (NEG) Test 01/17/17 03:45 01/18/17 05:04 White Blood Count 6.3x10^3/uL (4.0-11.0) 6.4x10^3/uL (4.0-11.0) Red Blood Count 4.44x10^6/uL (3.50-5.40) 4.25x10^6/uL (3.50-5.40) Hemoglobin 13.3g/dL (12.0-15.5) 12.7g/dL (12.0-15.5) Hematocrit 40.7% (36.0-47.0) 39.2% (36.0-47.0) Mean Corpuscular Volume 92fL (79-100) 92fL (79-100) Mean Corpuscular Hemoglobin 30pg (25-35) 30pg (25-35) Mean Corpuscular Hemoglobin Concent 33g/dL (31-37) 33g/dL (31-37) Red Cell Distribution Width 13.6% (11.5-14.5) 13.3% (11.5-14.5) Platelet Count 269x10^3/uL (140-400) 238x10^3/uL (140-400) Neutrophils (%) (Auto) 55% (31-73) 62% (31-73) Lymphocytes (%) (Auto) 29% (24-48) 26% (24-48) Monocytes (%) (Auto) 11% (0-9) 8% (0-9) Eosinophils (%) (Auto) 4% (0-3) 3% (0-3) Basophils (%) (Auto) 1% (0-3) 1% (0-3) Neutrophils # (Auto) 3.5x10^3uL (1.8-7.7) 3.9x10^3uL (1.8-7.7) Lymphocytes # (Auto) 1.8x10^3/uL (1.0-4.8) 1.7x10^3/uL (1.0-4.8) Monocytes # (Auto) 0.7x10^3/uL (0.0-1.1) 0.5x10^3/uL (0.0-1.1) Eosinophils # (Auto) 0.3x10^3/uL (0.0-0.7) 0.2x10^3/uL (0.0-0.7) Basophils # (Auto) 0.0x10^3/uL (0.0-0.2) 0.0x10^3/uL (0.0-0.2) Sodium Level 139mmol/L (136-145) 139mmol/L (136-145) Potassium Level 3.9mmol/L (3.5-5.1) 4.1mmol/L (3.5-5.1) Chloride Level 104mmol/L (98-107) 106mmol/L (98-107) Carbon Dioxide Level 25mmol/L (21-32) 21mmol/L (21-32) Anion Gap 10 (6-14) 12 (6-14) Blood Urea Nitrogen 8mg/dL (7-20) 13mg/dL (7-20) Creatinine 0.8mg/dL (0.6-1.0) 0.7mg/dL (0.6-1.0) Estimated GFR (Cockcroft-Gault) 88.9 103.7 BUN/Creatinine Ratio 10 (6-20) 19 (6-20) Glucose Level 81mg/dL (70-99) 64mg/dL (70-99) Calcium Level 8.3mg/dL (8.5-10.1) 8.1mg/dL (8.5-10.1) Total Bilirubin 4.2mg/dL (0.2-1.0) 1.8mg/dL (0.2-1.0) Direct Bilirubin 2.7mg/dL (0.0-0.2) Aspartate Amino Transf (AST/SGOT) 395U/L (15-37) 103U/L (15-37) Alanine Aminotransferase (ALT/SGPT) 493U/L (14-59) 284U/L (14-59) Alkaline Phosphatase 172U/L (46-116) 163U/L (46-116) Total Protein 6.8g/dL (6.4-8.2) 6.5g/dL (6.4-8.2) Albumin 3.4g/dL (3.4-5.0) 3.2g/dL (3.4-5.0) Albumin/Globulin Ratio 1.0 (1.0-1.7) 1.0 (1.0-1.7) Hepatitis A IgM Antibody Negative (Negative) Hepatitis B Surface Antigen Negative (Negative) Hepatitis B Core IgM Antibody Negative (Negative) Hepatitis C Antibody <0.1s/co ratio (0.0-0.9) Laboratory Tests Test 01/18/17 05:04 White Blood Count 6.4x10^3/uL (4.0-11.0) Red Blood Count 4.25x10^6/uL (3.50-5.40) Hemoglobin 12.7g/dL (12.0-15.5) Hematocrit 39.2% (36.0-47.0) Mean Corpuscular Volume 92fL (79-100) Mean Corpuscular Hemoglobin 30pg (25-35) Mean Corpuscular Hemoglobin Concent 33g/dL (31-37) Red Cell Distribution Width 13.3% (11.5-14.5) Platelet Count 238x10^3/uL (140-400) Neutrophils (%) (Auto) 62% (31-73) Lymphocytes (%) (Auto) 26% (24-48) Monocytes (%) (Auto) 8% (0-9) Eosinophils (%) (Auto) 3% (0-3) Basophils (%) (Auto) 1% (0-3) Neutrophils # (Auto) 3.9x10^3uL (1.8-7.7) Lymphocytes # (Auto) 1.7x10^3/uL (1.0-4.8) Monocytes # (Auto) 0.5x10^3/uL (0.0-1.1) Eosinophils # (Auto) 0.2x10^3/uL (0.0-0.7) Basophils # (Auto) 0.0x10^3/uL (0.0-0.2) Sodium Level 139mmol/L (136-145) Potassium Level 4.1mmol/L (3.5-5.1) Chloride Level 106mmol/L (98-107) Carbon Dioxide Level 21mmol/L (21-32) Anion Gap 12 (6-14) Blood Urea Nitrogen 13mg/dL (7-20) Creatinine 0.7mg/dL (0.6-1.0) Estimated GFR (Cockcroft-Gault) 103.7 BUN/Creatinine Ratio 19 (6-20) Glucose Level 64mg/dL (70-99) Calcium Level 8.1mg/dL (8.5-10.1) Total Bilirubin 1.8mg/dL (0.2-1.0) Aspartate Amino Transf (AST/SGOT) 103U/L (15-37) Alanine Aminotransferase (ALT/SGPT) 284U/L (14-59) Alkaline Phosphatase 163U/L (46-116) Total Protein 6.5g/dL (6.4-8.2) Albumin 3.2g/dL (3.4-5.0) Albumin/Globulin Ratio 1.0 (1.0-1.7) Medications Current Medications Ondansetron HCl (Zofran) 4 mg 1X ONCE IV ; Start 01/16/17 at 16:15; Stop at 16:15; Status DC Fentanyl Citrate (Fentanyl 2ml Vial) 50 mcg PRN Q15MIN PRN IV PAIN GREATER THAN 3/10 Last administered on 01/16/17 16:50; Start 01/16/17 at 16:15; Stop at 16:14; Status DC Ondansetron HCl (Zofran) 4 mg 1X ONCE IV Last administered on 01/16/17 16:47 ; Start 01/16/17 at 16:15; Stop 01/16/17 at 16:16; Status DC Ondansetron HCl (Zofran) 4 mg PRN Q8HRS PRN IV NAUSEA/VOMITING Last administered on 01/17/17 12:38; Start 01/16/17 at 18:15; Stop 01/17/17 at 18:14; Status DC Morphine Sulfate 4 mg 4 mg PRN Q2HR PRN IV PAIN Last administered on 01/17/17 11:26; Start 01/16/17 at 18:15; Stop 01/17/17 at 18:14; Status DC Sodium Chloride 1,000 ml @ 125 mls/hr Q8H IV Last administered on 01/17/17 11: 24; Start 01/16/17 at 18:09; Stop 01/17/17 at 18:08; Status DC Sodium Chloride (Iv Sodium Chloride 0.9% 1000ml Bag) 1,000 ml @ 125 mls/hr Q8H IV Last administered on 01/18/17 04:57; Start 01/17/17 at 19:00; Stop 01/18/17 at 08:07; Status DC Morphine Sulfate 2 mg PRN Q2HR PRN IV PAIN Last administered on 01/18/17 07:59 ; Start 01/17/17 at 18:45 Ondansetron HCl 4 mg 4 mg PRN Q6HRS PRN IV NAUSEA/VOMITING Last administered on 01/18/17 08:00; Start 01/18/17 at 08:00 Cefazolin Sodium/ Dextrose 50 ml @ 100 mls/hr 1X ONCE IV Last administered on 01/18/17 10:50; Start 01/18/17 at 07:00; Stop 01/18/17 at 08:08; Status DC Dextrose/Lactated Ringer's (Iv D5%-Lr) 1,000 ml @ 100 mls/hr Q10H IV Last administered on 01/18/17 08:59; Start 01/18/17 at 07:00 Ondansetron HCl (Zofran) 0.4 mg PRN Q6HRS PRN IV NAUSEA/VOMITING; Start at 08:45; Stop 01/19/17 at 08:44 Fentanyl Citrate (Fentanyl 2ml Vial) 25 mcg PRN Q5MIN PRN IV MILD PAIN; Start 01/18/17 at 08:45; Stop 01/19/17 at 08:44 Fentanyl Citrate (Fentanyl 2ml Vial) 50 mcg PRN Q5MIN PRN IV MODERATE PAIN Last administered on 01/18/17 12:58; Start 01/18/17 at 08:45; Stop 01/19/17 at 08: 44 Morphine Sulfate 1 mg 1 mg PRN Q10MIN PRN IV SEVERE PAIN; Start 01/18/17 at 08: 45; Stop 01/19/17 at 08:44 Lactated Ringer's (Iv Lactated Ringers) 1,000 ml @ 0 mls/hr Q0M IV Last administered on 01/18/17 09:58; Start 01/18/17 at 08:38; Stop 01/18/17 at 20:37 Lidocaine HCl 2 ml PRN 1X PRN ID PRIOR TO IV START; Start 01/18/17 at 08:45; Stop 01/19/17 at 08:44 Hydromorphone HCl (Dilaudid) 0.5 mg PRN Q10MIN PRN IV SEV PAIN, Second choice Last administered on 01/18/17 13:16; Start 01/18/17 at 08:45; Stop 01/19/17 at 08: 44 Prochlorperazine Edisylate (Compazine) 5 mg PACU PRN PRN IV NAUSEA, MRX1 Last administered on 01/18/17 12:14; Start 01/18/17 at 08:45; Stop 01/19/17 at 08:44 Midazolam HCl (Versed) 2 mg STK-MED ONCE .ROUTE ; Start 01/18/17 at 09:18; Stop 01/18/17 at 09:19; Status DC Fentanyl Citrate (Fentanyl 2ml Vial) 100 mcg STK-MED ONCE .ROUTE ; Start at 09:45; Stop 01/18/17 at 09:46; Status DC Rocuronium [place] (Zemuron) 50 mg STK-MED ONCE .ROUTE ; Start 01/18/17 at 09:45 ; Stop 01/18/17 at 09:46; Status DC Isoflurane 90 ml 90 ml STK-MED ONCE IH ; Start 01/18/17 at 09:45; Stop 01/18/17 at 09:46; Status DC Propofol (Diprivan) 20 ml @ As Directed STK-MED ONCE IV ; Start 01/18/17 at 09:45 ; Stop 01/18/17 at 09:46; Status DC Dexamethasone Sodium Phosphate (Decadron) 20 mg STK-MED ONCE .ROUTE ; Start 01/18 at 09:46; Stop 01/18/17 at 09:47; Status DC Ondansetron HCl (Zofran) 4 mg STK-MED ONCE .ROUTE ; Start 01/18/17 at 09:46; Stop 01/18/17 at 09:47; Status DC Lidocaine HCl (Lidocaine HCl 2% Abboject) 100 mg STK-MED ONCE .ROUTE ; Start 01/18/17 at 09:46; Stop 01/18/17 at 09:47; Status DC Cellulose 1 each STK-MED ONCE .ROUTE ; Start 01/18/17 at 10:27; Stop 01/18/17 at 10:28; Status DC Iohexol (Omnipaque 300 Mg/ml) 50 ml STK-MED ONCE .ROUTE Last administered on 10:56; Start 01/18/17 at 10:27; Stop 01/18/17 at 10:28; Status DC Bupivacaine HCl/ Epinephrine Bitart (Sensorcaine-Epi 0.25%-1:904739 Mpf) 30 ml STK-MED ONCE .ROUTE Last administered on 01/18/17 10:56; Start 01/18/17 at 10:28 ; Stop 01/18/17 at 10:29; Status DC Glucagon (Glucagen) 1 mg STK-MED ONCE .ROUTE ; Start 01/18/17 at 11:20; Stop 01/18 at 11:21; Status DC Lidocaine HCl 30 ml STK-MED ONCE .ROUTE Last administered on 01/18/17 10:56; Start 01/18/17 at 11:22; Stop 01/18/17 at 11:23; Status DC Fentanyl Citrate 100 mcg 100 mcg STK-MED ONCE .ROUTE ; Start 01/18/17 at 11:35; Stop 01/18/17 at 11:36; Status DC Propofol (Diprivan) 20 ml @ As Directed STK-MED ONCE IV ; Start 01/18/17 at 11:56 ; Stop 01/18/17 at 11:57; Status DC Morphine Sulfate 10 mg STK-MED ONCE .ROUTE ; Start 01/18/17 at 11:58; Stop at 11:59; Status DC Ketorolac Tromethamine 15 mg 15 mg Q6HRS IV ; Start 01/18/17 at 18:00; Stop at 17:59 Levofloxacin/ Dextrose (LEVAQUIN 500mg PREMIX) 100 ml @ 100 mls/hr Q24H IV ; Start 01/18/17 at 15:00 Vitals/I & O Vital Sign - Last 24 Hours 01/17/17 01/17/17 01/17/17 01/17/17 15:00 19:30 20:30 20:53 Temp 98.6 98.4 98.6 98.4 Pulse 66 65 Resp 20 18 B/P 105/51 96/54 Pulse Ox 97 99 O2 Delivery Room Air Room Air Room Air Room Air 01/17/17 01/18/17 01/18/17 01/18/17 23:21 03:26 07:00 07:45 Temp 98.1 98.1 98.3 98.1 98.1 98.3 Pulse 74 70 76 Resp 16 16 20 B/P 106/62 110/62 98/54 Pulse Ox 96 96 97 O2 Delivery Room Air Room Air Room Air Room Air 01/18/17 01/18/17 01/18/17 01/18/17 07:59 08:39 10:02 11:59 Temp 98.2 98.2 Pulse 72 Resp 20 B/P 117/58 Pulse Ox 99 O2 Delivery Room Air Room Air Room Air Mask O2 Flow Rate 10 01/18/17 01/18/17 01/18/17 01/18/17 11:59 12:11 12:14 12:19 Temp 99.0 99.0 Pulse 59 56 Resp 16 16 16 18 B/P 119/67 106/52 Pulse Ox 100 100 100 100 O2 Delivery Simple Mask Simple Mask Simple Mask Room Air O2 Flow Rate 10 10.0 10 10.0 01/18/17 01/18/17 01/18/17 01/18/17 12:29 12:33 12:37 12:44 Pulse 56 72 Resp 16 16 B/P 98/52 117/66 Pulse Ox 93 97 97 O2 Delivery Room Air Room Air Room Air Room Air 01/18/17 01/18/17 01/18/17 01/18/17 12:45 12:56 12:58 12:59 Temp 97.2 97.2 Pulse 84 Resp 16 16 16 14 B/P 102/57 Pulse Ox 98 98 98 97 O2 Delivery Room Air Room Air Room Air Room Air 01/18/17 01/18/17 13:14 13:16 Temp 97.1 97.1 Pulse 73 Resp 14 B/P 109/54 Pulse Ox 97 97 O2 Delivery Nasal Cannula Room Air O2 Flow Rate 2 Intake and Output 01/17/17 01/17/17 01/18/17 15:00 23:00 07:00 Intake Total 2746 ml Balance 2746 ml LUTHER GREGG III DO Jan 18, 2017 14:49
[2017-01-18 14:57] LABS: INR 1.1 (0.8-1.1); PROTHROMBIN TIME PATIENT 13.5 SEC (11.7-14.0)
[2017-01-18] MEDS: KETOROLAC 15 MG/ML VIAL. IV SCH ×2 (18:12→23:22)
[2017-01-19 03:21] VITALS: BP 99/56
[2017-01-19 04:13] LABS: ALBUMIN 2.8 g/dL (3.4-5.0); CALCIUM 8.1 mg/dL (8.5-10.1); CREATININE 0.6 mg/dL (0.6-1.0); GFR 123.9; POTASSIUM 3.8 mmol/L (3.5-5.1); TOTAL BILIRUBIN 2.6 mg/dL (0.2-1.0); TOTAL PROTEIN 5.7 g/dL (6.4-8.2)
[2017-01-19] MEDS: KETOROLAC 15 MG/ML VIAL. IV SCH ×4 (05:50→23:39)
[2017-01-19 07:00] VITALS: BP 101/55
--- NOTE | 2017-01-19 09:26 | PDOC ---
SURGICAL PROGRESS NOTE Subjective Feeling ok. Vital Signs Vital Signs Date Time Temp Pulse Resp B/P Pulse Ox O2 Delivery O2 Flow Rate FiO2 01/19/17 07:00 98.6 78 16 101/55 98 Room Air 98.6 01/18/17 13:14 2 I&O Intake and Output 01/19/17 07:00 Intake Total 2920 ml Output Total 25 ml Balance 2895 ml Intake Oral 720 ml IV Total 2200 ml Output Estimated Blood Loss 25 ml # Voids 6 PATIENT HAS A العراقي: No General: Alert, Oriented X3, Cooperative, mild distress Abdomen: Normal bowel sounds, Soft, Other (TTP epigastrium) Labs Laboratory Tests Test 01/18/17 05:04 01/18/17 14:30 01/19/17 03:13 White Blood Count 6.4x10^3/uL (4.0-11.0) Red Blood Count 4.25x10^6/uL (3.50-5.40) Hemoglobin 12.7g/dL (12.0-15.5) Hematocrit 39.2% (36.0-47.0) Mean Corpuscular Volume 92fL (79-100) Mean Corpuscular Hemoglobin 30pg (25-35) Mean Corpuscular Hemoglobin Concent 33g/dL (31-37) Red Cell Distribution Width 13.3% (11.5-14.5) Platelet Count 238x10^3/uL (140-400) Neutrophils (%) (Auto) 62% (31-73) Lymphocytes (%) (Auto) 26% (24-48) Monocytes (%) (Auto) 8% (0-9) Eosinophils (%) (Auto) 3% (0-3) Basophils (%) (Auto) 1% (0-3) Neutrophils # (Auto) 3.9x10^3uL (1.8-7.7) Lymphocytes # (Auto) 1.7x10^3/uL (1.0-4.8) Monocytes # (Auto) 0.5x10^3/uL (0.0-1.1) Eosinophils # (Auto) 0.2x10^3/uL (0.0-0.7) Basophils # (Auto) 0.0x10^3/uL (0.0-0.2) Sodium Level 139mmol/L (136-145) 141mmol/L (136-145) Potassium Level 4.1mmol/L (3.5-5.1) 3.8mmol/L (3.5-5.1) Chloride Level 106mmol/L (98-107) 109mmol/L (98-107) Carbon Dioxide Level 21mmol/L (21-32) 26mmol/L (21-32) Anion Gap 12 (6-14) 6 (6-14) Blood Urea Nitrogen 13mg/dL (7-20) 4mg/dL (7-20) Creatinine 0.7mg/dL (0.6-1.0) 0.6mg/dL (0.6-1.0) Estimated GFR (Cockcroft-Gault) 103.7 123.9 BUN/Creatinine Ratio 19 (6-20) 7 (6-20) Glucose Level 64mg/dL (70-99) 131mg/dL (70-99) Calcium Level 8.1mg/dL (8.5-10.1) 8.1mg/dL (8.5-10.1) Total Bilirubin 1.8mg/dL (0.2-1.0) 2.6mg/dL (0.2-1.0) Aspartate Amino Transf (AST/SGOT) 103U/L (15-37) 96U/L (15-37) Alanine Aminotransferase (ALT/SGPT) 284U/L (14-59) 211U/L (14-59) Alkaline Phosphatase 163U/L (46-116) 151U/L (46-116) Total Protein 6.5g/dL (6.4-8.2) 5.7g/dL (6.4-8.2) Albumin 3.2g/dL (3.4-5.0) 2.8g/dL (3.4-5.0) Albumin/Globulin Ratio 1.0 (1.0-1.7) 1.0 (1.0-1.7) Prothrombin Time 13.5SEC (11.7-14.0) Prothromb Time International Ratio 1.1 (0.8-1.1) Laboratory Tests Test 01/18/17 14:30 01/19/17 03:13 Prothrombin Time 13.5SEC (11.7-14.0) Prothromb Time International Ratio 1.1 (0.8-1.1) Sodium Level 141mmol/L (136-145) Potassium Level 3.8mmol/L (3.5-5.1) Chloride Level 109mmol/L (98-107) Carbon Dioxide Level 26mmol/L (21-32) Anion Gap 6 (6-14) Blood Urea Nitrogen 4mg/dL (7-20) Creatinine 0.6mg/dL (0.6-1.0) Estimated GFR (Cockcroft-Gault) 123.9 BUN/Creatinine Ratio 7 (6-20) Glucose Level 131mg/dL (70-99) Calcium Level 8.1mg/dL (8.5-10.1) Total Bilirubin 2.6mg/dL (0.2-1.0) Aspartate Amino Transf (AST/SGOT) 96U/L (15-37) Alanine Aminotransferase (ALT/SGPT) 211U/L (14-59) Alkaline Phosphatase 151U/L (46-116) Total Protein 5.7g/dL (6.4-8.2) Albumin 2.8g/dL (3.4-5.0) Albumin/Globulin Ratio 1.0 (1.0-1.7) Problem List Problems Medical Problems: (1) Cholelithiasis Status: Acute (2) Hyperbilirubinemia Status: Acute (3) Leukocytosis Status: Acute (4) Nausea & vomiting Status: Acute (5) Transaminitis Status: Acute Assessment/Plan s/p l/s cholecystectomy with IOC showing CBD stone TBili up today Plan for ERCP Problems: MILLY SHEPHERD MD Jan 19, 2017 09:25
[2017-01-19] MEDS ORDERED: PROPOFOL 20 ML IV ONE ×2 (10:46→13:38)
[2017-01-19] MEDS ORDERED: LIDOCAINE 2% PF Vial for OR 5 ML VIAL. ONE (10:47)
[2017-01-19] MEDS ORDERED: SUCCINYLCHOLINE 200 MG/10 ML VIAL. ONE (10:47)
[2017-01-19 11:00] VITALS: BP 101/59
[2017-01-19] MEDS: IV DEXTROSE 5%-LACT RINGERS 1,000 ML IV SCH ×2 (11:48→23:40)
[2017-01-19] MEDS ORDERED: OXYCODONE/APAP 10/325 TABLET. PO PRN (12:15)
[2017-01-19] MEDS ORDERED: OXYCODONE/APAP 5/325 TABLET. PO PRN (12:15)
[2017-01-19] MEDS ORDERED: IV RINGERS,LACTATED 1000ML 1,000 ML IV SCH (12:27)
[2017-01-19] MEDS ORDERED: FENTANYL PF 100 MCG/2 ML VIAL. IV PRN ×2 (12:30)
[2017-01-19] MEDS ORDERED: LIDOCAINE 1% 1 ML SYRINGE. ID PRN (12:30)
[2017-01-19] MEDS ORDERED: MIDAZOLAM HCL/PF 2 MG/2 ML VIAL. IV PRN (12:30)
--- NOTE | 2017-01-19 12:49 | PDOC ---
PROGRESS NOTES Chief Complaint Chief Complaint Cholelithiasis s/p l/s cholecystectomy with IOC showing CBD stone History of Present Illness History of Present Illness Out having ERCP, s/p cholecystectomy LABS REVIEWED, LFTs coming down PLAN: Will see post ERCP Follow GI and GS recs LFTs coming down Vitals Vitals Vital Signs Date Time Temp Pulse Resp B/P Pulse Ox O2 Delivery O2 Flow Rate FiO2 01/19/17 12:41 Room Air 2 01/19/17 12:39 98.6 69 20 100 98.6 01/19/17 11:00 101/59 Physical Exam General: Alert, Oriented X3, Cooperative, mild distress Heart: Regular rate, Normal S1, Normal S2, No murmurs Lungs: Clear, Other (No chest retractions were present.) Abdomen: Normal bowel sounds, Soft, Other Extremities: No cyanosis, No tenderness/swelling Skin: No rashes, No breakdown, Other (mild jaundice) Labs LABS Laboratory Tests Test 01/18/17 14:30 01/19/17 03:13 Prothrombin Time 13.5SEC (11.7-14.0) Prothromb Time International Ratio 1.1 (0.8-1.1) Sodium Level 141mmol/L (136-145) Potassium Level 3.8mmol/L (3.5-5.1) Chloride Level 109mmol/L (98-107) Carbon Dioxide Level 26mmol/L (21-32) Anion Gap 6 (6-14) Blood Urea Nitrogen 4mg/dL (7-20) Creatinine 0.6mg/dL (0.6-1.0) Estimated GFR (Cockcroft-Gault) 123.9 BUN/Creatinine Ratio 7 (6-20) Glucose Level 131mg/dL (70-99) Calcium Level 8.1mg/dL (8.5-10.1) Total Bilirubin 2.6mg/dL (0.2-1.0) Aspartate Amino Transf (AST/SGOT) 96U/L (15-37) Alanine Aminotransferase (ALT/SGPT) 211U/L (14-59) Alkaline Phosphatase 151U/L (46-116) Total Protein 5.7g/dL (6.4-8.2) Albumin 2.8g/dL (3.4-5.0) Albumin/Globulin Ratio 1.0 (1.0-1.7) Review of Systems Review of Systems out having ERCP Assessment and Plan Assessmemt and Plan Problems Medical Problems: (1) Cholelithiasis Status: Acute (2) Hyperbilirubinemia Status: Acute (3) Leukocytosis Status: Acute (4) Nausea & vomiting Status: Acute (5) Transaminitis Status: Acute Problems: Comment Review of Relevant I have reviewed the following items ang (where applicable) has been applied. Labs Laboratory Tests Test 01/18/17 05:04 01/18/17 14:30 01/19/17 03:13 White Blood Count 6.4x10^3/uL (4.0-11.0) Red Blood Count 4.25x10^6/uL (3.50-5.40) Hemoglobin 12.7g/dL (12.0-15.5) Hematocrit 39.2% (36.0-47.0) Mean Corpuscular Volume 92fL (79-100) Mean Corpuscular Hemoglobin 30pg (25-35) Mean Corpuscular Hemoglobin Concent 33g/dL (31-37) Red Cell Distribution Width 13.3% (11.5-14.5) Platelet Count 238x10^3/uL (140-400) Neutrophils (%) (Auto) 62% (31-73) Lymphocytes (%) (Auto) 26% (24-48) Monocytes (%) (Auto) 8% (0-9) Eosinophils (%) (Auto) 3% (0-3) Basophils (%) (Auto) 1% (0-3) Neutrophils # (Auto) 3.9x10^3uL (1.8-7.7) Lymphocytes # (Auto) 1.7x10^3/uL (1.0-4.8) Monocytes # (Auto) 0.5x10^3/uL (0.0-1.1) Eosinophils # (Auto) 0.2x10^3/uL (0.0-0.7) Basophils # (Auto) 0.0x10^3/uL (0.0-0.2) Sodium Level 139mmol/L (136-145) 141mmol/L (136-145) Potassium Level 4.1mmol/L (3.5-5.1) 3.8mmol/L (3.5-5.1) Chloride Level 106mmol/L (98-107) 109mmol/L (98-107) Carbon Dioxide Level 21mmol/L (21-32) 26mmol/L (21-32) Anion Gap 12 (6-14) 6 (6-14) Blood Urea Nitrogen 13mg/dL (7-20) 4mg/dL (7-20) Creatinine 0.7mg/dL (0.6-1.0) 0.6mg/dL (0.6-1.0) Estimated GFR (Cockcroft-Gault) 103.7 123.9 BUN/Creatinine Ratio 19 (6-20) 7 (6-20) Glucose Level 64mg/dL (70-99) 131mg/dL (70-99) Calcium Level 8.1mg/dL (8.5-10.1) 8.1mg/dL (8.5-10.1) Total Bilirubin 1.8mg/dL (0.2-1.0) 2.6mg/dL (0.2-1.0) Aspartate Amino Transf (AST/SGOT) 103U/L (15-37) 96U/L (15-37) Alanine Aminotransferase (ALT/SGPT) 284U/L (14-59) 211U/L (14-59) Alkaline Phosphatase 163U/L (46-116) 151U/L (46-116) Total Protein 6.5g/dL (6.4-8.2) 5.7g/dL (6.4-8.2) Albumin 3.2g/dL (3.4-5.0) 2.8g/dL (3.4-5.0) Albumin/Globulin Ratio 1.0 (1.0-1.7) 1.0 (1.0-1.7) Prothrombin Time 13.5SEC (11.7-14.0) Prothromb Time International Ratio 1.1 (0.8-1.1) Laboratory Tests Test 01/18/17 14:30 01/19/17 03:13 Prothrombin Time 13.5SEC (11.7-14.0) Prothromb Time International Ratio 1.1 (0.8-1.1) Sodium Level 141mmol/L (136-145) Potassium Level 3.8mmol/L (3.5-5.1) Chloride Level 109mmol/L (98-107) Carbon Dioxide Level 26mmol/L (21-32) Anion Gap 6 (6-14) Blood Urea Nitrogen 4mg/dL (7-20) Creatinine 0.6mg/dL (0.6-1.0) Estimated GFR (Cockcroft-Gault) 123.9 BUN/Creatinine Ratio 7 (6-20) Glucose Level 131mg/dL (70-99) Calcium Level 8.1mg/dL (8.5-10.1) Total Bilirubin 2.6mg/dL (0.2-1.0) Aspartate Amino Transf (AST/SGOT) 96U/L (15-37) Alanine Aminotransferase (ALT/SGPT) 211U/L (14-59) Alkaline Phosphatase 151U/L (46-116) Total Protein 5.7g/dL (6.4-8.2) Albumin 2.8g/dL (3.4-5.0) Albumin/Globulin Ratio 1.0 (1.0-1.7) Medications Current Medications Ondansetron HCl (Zofran) 4 mg 1X ONCE IV ; Start 01/16/17 at 16:15; Stop at 16:15; Status DC Fentanyl Citrate (Fentanyl 2ml Vial) 50 mcg PRN Q15MIN PRN IV PAIN GREATER THAN 3/10 Last administered on 01/16/17 16:50; Start 01/16/17 at 16:15; Stop at 16:14; Status DC Ondansetron HCl (Zofran) 4 mg 1X ONCE IV Last administered on 01/16/17 16:47 ; Start 01/16/17 at 16:15; Stop 01/16/17 at 16:16; Status DC Ondansetron HCl (Zofran) 4 mg PRN Q8HRS PRN IV NAUSEA/VOMITING Last administered on 01/17/17 12:38; Start 01/16/17 at 18:15; Stop 01/17/17 at 18:14; Status DC Morphine Sulfate 4 mg 4 mg PRN Q2HR PRN IV PAIN Last administered on 01/17/17 11:26; Start 01/16/17 at 18:15; Stop 01/17/17 at 18:14; Status DC Sodium Chloride 1,000 ml @ 125 mls/hr Q8H IV Last administered on 01/17/17 11: 24; Start 01/16/17 at 18:09; Stop 01/17/17 at 18:08; Status DC Sodium Chloride (Iv Sodium Chloride 0.9% 1000ml Bag) 1,000 ml @ 125 mls/hr Q8H IV Last administered on 01/18/17 04:57; Start 01/17/17 at 19:00; Stop 01/18/17 at 08:07; Status DC Morphine Sulfate 2 mg PRN Q2HR PRN IV PAIN Last administered on 01/18/17 23:22 ; Start 01/17/17 at 18:45 Ondansetron HCl 4 mg 4 mg PRN Q6HRS PRN IV NAUSEA/VOMITING Last administered on 01/18/17 08:00; Start 01/18/17 at 08:00 Cefazolin Sodium/ Dextrose 50 ml @ 100 mls/hr 1X ONCE IV Last administered on 01/18/17 10:50; Start 01/18/17 at 07:00; Stop 01/18/17 at 08:08; Status DC Dextrose/Lactated Ringer's (Iv D5%-Lr) 1,000 ml @ 100 mls/hr Q10H IV Last administered on 01/19/17 11:48; Start 01/18/17 at 07:00 Ondansetron HCl (Zofran) 0.4 mg PRN Q6HRS PRN IV NAUSEA/VOMITING; Start at 08:45; Stop 01/19/17 at 08:44; Status DC Fentanyl Citrate (Fentanyl 2ml Vial) 25 mcg PRN Q5MIN PRN IV MILD PAIN; Start 01/18/17 at 08:45; Stop 01/19/17 at 08:44; Status DC Fentanyl Citrate (Fentanyl 2ml Vial) 50 mcg PRN Q5MIN PRN IV MODERATE PAIN Last administered on 01/18/17 12:58; Start 01/18/17 at 08:45; Stop 01/19/17 at 08: 44; Status DC Morphine Sulfate 1 mg 1 mg PRN Q10MIN PRN IV SEVERE PAIN; Start 01/18/17 at 08: 45; Stop 01/19/17 at 08:44; Status DC Lactated Ringer's (Iv Lactated Ringers) 1,000 ml @ 0 mls/hr Q0M IV Last administered on 01/18/17 09:58; Start 01/18/17 at 08:38; Stop 01/18/17 at 20:37; Status DC Lidocaine HCl 2 ml PRN 1X PRN ID PRIOR TO IV START; Start 01/18/17 at 08:45; Stop 01/19/17 at 08:44; Status DC Hydromorphone HCl (Dilaudid) 0.5 mg PRN Q10MIN PRN IV SEV PAIN, Second choice Last administered on 01/18/17 13:16; Start 01/18/17 at 08:45; Stop 01/19/17 at 08: 44; Status DC Prochlorperazine Edisylate (Compazine) 5 mg PACU PRN PRN IV NAUSEA, MRX1 Last administered on 01/18/17 12:14; Start 01/18/17 at 08:45; Stop 01/19/17 at 08:44; Status DC Midazolam HCl (Versed) 2 mg STK-MED ONCE .ROUTE ; Start 01/18/17 at 09:18; Stop 01/18/17 at 09:19; Status DC Fentanyl Citrate (Fentanyl 2ml Vial) 100 mcg STK-MED ONCE .ROUTE ; Start at 09:45; Stop 01/18/17 at 09:46; Status DC Rocuronium [place] (Zemuron) 50 mg STK-MED ONCE .ROUTE ; Start 01/18/17 at 09:45 ; Stop 01/18/17 at 09:46; Status DC Isoflurane 90 ml 90 ml STK-MED ONCE IH ; Start 01/18/17 at 09:45; Stop 01/18/17 at 09:46; Status DC Propofol (Diprivan) 20 ml @ As Directed STK-MED ONCE IV ; Start 01/18/17 at 09:45 ; Stop 01/18/17 at 09:46; Status DC Dexamethasone Sodium Phosphate (Decadron) 20 mg STK-MED ONCE .ROUTE ; Start 01/18 at 09:46; Stop 01/18/17 at 09:47; Status DC Ondansetron HCl (Zofran) 4 mg STK-MED ONCE .ROUTE ; Start 01/18/17 at 09:46; Stop 01/18/17 at 09:47; Status DC Lidocaine HCl (Lidocaine HCl 2% Abboject) 100 mg STK-MED ONCE .ROUTE ; Start 01/18/17 at 09:46; Stop 01/18/17 at 09:47; Status DC Cellulose 1 each STK-MED ONCE .ROUTE ; Start 01/18/17 at 10:27; Stop 01/18/17 at 10:28; Status DC Iohexol (Omnipaque 300 Mg/ml) 50 ml STK-MED ONCE .ROUTE Last administered on 10:56; Start 01/18/17 at 10:27; Stop 01/18/17 at 10:28; Status DC Bupivacaine HCl/ Epinephrine Bitart (Sensorcaine-Epi 0.25%-1:820762 Mpf) 30 ml STK-MED ONCE .ROUTE Last administered on 01/18/17 10:56; Start 01/18/17 at 10:28 ; Stop 01/18/17 at 10:29; Status DC Glucagon (Glucagen) 1 mg STK-MED ONCE .ROUTE ; Start 01/18/17 at 11:20; Stop 01/18 at 11:21; Status DC Lidocaine HCl 30 ml STK-MED ONCE .ROUTE Last administered on 01/18/17 10:56; Start 01/18/17 at 11:22; Stop 01/18/17 at 11:23; Status DC Fentanyl Citrate 100 mcg 100 mcg STK-MED ONCE .ROUTE ; Start 01/18/17 at 11:35; Stop 01/18/17 at 11:36; Status DC Propofol (Diprivan) 20 ml @ As Directed STK-MED ONCE IV ; Start 01/18/17 at 11:56 ; Stop 01/18/17 at 11:57; Status DC Morphine Sulfate 10 mg STK-MED ONCE .ROUTE ; Start 01/18/17 at 11:58; Stop at 11:59; Status DC Ketorolac Tromethamine 15 mg 15 mg Q6HRS IV Last administered on 01/19/17 11:46 ; Start 01/18/17 at 18:00; Stop 01/20/17 at 17:59 Levofloxacin/ Dextrose 100 ml @ 100 mls/hr Q24H IV Last administered on 4/2/ 17at 16:10; Start 01/18/17 at 15:00 Propofol (Diprivan) 20 ml @ As Directed STK-MED ONCE IV ; Start 01/19/17 at 10:46 ; Stop 01/19/17 at 10:47; Status DC Lidocaine HCl (Lidocaine Pf 2% Vial) 5 ml STK-MED ONCE .ROUTE ; Start 01/19/17 at 10:47; Stop 01/19/17 at 10:48; Status DC Succinylcholine Chloride (Anectine) 200 mg STK-MED ONCE .ROUTE ; Start 01/19/17 at 10:47; Stop 01/19/17 at 10:48; Status DC Oxycodone/ Acetaminophen (Percocet 5/325) 1 tab PRN Q4HRS PRN PO PAIN; Start at 12:15 Oxycodone/ Acetaminophen (Percocet 10/325) 1 tab PRN Q4HRS PRN PO pain; Start 01/19/17 at 12:15 Midazolam HCl (Versed) 2 mg PRN 1X PRN IV PRIOR TO PROCEDURE; Start 01/19/17 at 12:30; Stop 01/20/17 at 12:29 Fentanyl Citrate (Fentanyl 2ml Vial) 25 mcg PRN Q5MIN PRN IV X 2 DOSES FOR PAIN ; Start 01/19/17 at 12:30; Stop 01/20/17 at 12:29 Fentanyl Citrate 50 mcg 50 mcg PRN Q5MIN PRN IV X 2 DOSES FOR PAIN; Start at 12:30; Stop 01/20/17 at 12:29 Lactated Ringer's (Iv Lactated Ringers) 1,000 ml @ 125 mls/hr Q8H IV ; Start at 12:27; Stop 01/20/17 at 00:26 Lidocaine HCl 2 ml 1X PRN PRN ID IV START; Start 01/19/17 at 12:30; Stop at 12:29 Vitals/I & O Vital Sign - Last 24 Hours 01/18/17 01/18/17 01/18/17 01/18/17 12:56 12:58 12:59 13:14 Temp 97.2 97.1 97.2 97.1 Pulse 84 73 Resp 16 16 14 14 B/P 102/57 109/54 Pulse Ox 98 98 97 97 O2 Delivery Room Air Room Air Room Air Nasal Cannula O2 Flow Rate 2 01/18/17 01/18/17 01/18/17 01/18/17 13:16 13:34 13:45 14:00 Temp 97.5 97.5 97.5 97.5 97.5 97.5 Pulse 57 72 62 Resp 20 20 20 B/P 106/46 103/56 100/47 Pulse Ox 97 97 97 94 O2 Delivery Room Air Room Air Room Air Room Air 01/18/17 01/18/17 01/18/17 01/18/17 14:15 14:30 15:36 16:00 Temp 97.5 97.9 97.7 97.7 97.5 97.9 97.7 97.7 Pulse 81 63 64 68 Resp 20 20 20 20 B/P 101/41 95/42 89/43 95/43 Pulse Ox 94 99 96 99 O2 Delivery Room Air Room Air Room Air Room Air 01/18/17 01/18/17 01/18/17 01/18/17 17:00 19:30 20:10 22:58 Temp 97.7 98.7 98.2 97.7 98.7 98.2 Pulse 77 90 66 Resp 20 18 18 B/P 82/41 97/52 107/57 Pulse Ox 94 97 95 O2 Delivery Room Air Room Air Room Air Room Air 01/18/17 01/19/17 01/19/17 01/19/17 23:22 00:00 03:21 07:00 Temp 98.3 98.6 98.3 98.6 Pulse 70 78 Resp 16 16 B/P 99/56 101/55 Pulse Ox 95 98 O2 Delivery Room Air Room Air Room Air Room Air 01/19/17 01/19/17 01/19/17 01/19/17 08:00 11:00 12:39 12:41 Temp 98.4 98.6 98.4 98.6 Pulse 74 69 Resp 16 20 B/P 101/59 Pulse Ox 99 100 O2 Delivery Room Air Room Air Room Air O2 Flow Rate 2 Intake and Output 01/18/17 01/18/17 01/19/17 15:00 23:00 07:00 Intake Total 2320 ml 600 ml Output Total 25 ml Balance 2295 ml 600 ml KRISTA ACUNA MD Jan 19, 2017 12:49
[2017-01-19] MEDS ORDERED: IOHEXOL 300 MG/ML 50 ML VIAL. ONE (13:20)
[2017-01-19] MEDS ORDERED: FENTANYL PF 100 MCG/2 ML VIAL. ONE (13:24)
--- NOTE | 2017-01-19 14:23 | PDOC4 ---
PROCEDURE Procedure ERCP/ES with balloon sweep. Indication: abnormal IOC Meds: general anesthesia Findings: EGD ok w/in limits of scope. Major papilla seemed traumatized. CBD: no definite filling defect seen; filled to intrahepatic radicals. ES done; several passes with balloon extractor and nothing seen to exit. Occlusion cholangiogram at end of procedure and no filling defects seen. Tolerated well. IMP: Abnormal IOC; suspect spontaneous stone passage given appearance of papilla. REC: No ASA, NSAIDs for 2 weeks. OK to feed/dismiss at your discretion. Can f/u with me prn. SVETLANA STEELE MD Jan 19, 2017 14:23
[2017-01-19 15:00] VITALS: BP 109/63
[2017-01-19] MEDS: POLYETHYLENE GLYCOL 3350 17 GM PACKET. PO PRN (18:11)
[2017-01-19 19:00] VITALS: BP 111/65
[2017-01-19 23:00] VITALS: BP 104/62
[2017-01-20 03:00] VITALS: BP 95/58
[2017-01-20] MEDS: KETOROLAC 15 MG/ML VIAL. IV SCH ×2 (06:07→12:37)
[2017-01-20 07:00] VITALS: BP 104/72
[2017-01-20] MEDS ORDERED: MAGNESIUM HYDROXIDE 2,400 MG/30 ML ORAL.SUSP. PO PRN (08:45)
[2017-01-20] MEDS ORDERED: BISACODYL 5 MG TABLET.DR. PO PRN (08:45)
[2017-01-20] MEDS: POLYETHYLENE GLYCOL 3350 17 GM PACKET. PO PRN (08:55)
[2017-01-20] MEDS ORDERED: DOCUSATE SODIUM 100 MG CAPSULE. PO SCH (09:00)
[2017-01-20] MEDS ORDERED: MAGNESIUM HYDROXIDE 2,400 MG/30 ML ORAL.SUSP. PO ONE (09:00)
[2017-01-20] MEDS: IV DEXTROSE 5%-LACT RINGERS 1,000 ML IV SCH (09:00)
[2017-01-20 09:11] LABS: ALBUMIN 3.2 g/dL (3.4-5.0); DIRECT BILIRUBIN 0.5 mg/dL (0.0-0.2); TOTAL BILIRUBIN 0.9 mg/dL (0.2-1.0); TOTAL PROTEIN 6.5 g/dL (6.4-8.2)
--- NOTE | 2017-01-20 10:47 | PDOC ---
SURGICAL PROGRESS NOTE Subjective Feeling good, Tolerating diet Vital Signs Vital Signs Date Time Temp Pulse Resp B/P Pulse Ox O2 Delivery O2 Flow Rate FiO2 01/20/17 08:00 Room Air 01/20/17 07:00 97.9 75 18 104/72 99 97.9 01/19/17 14:16 2 I&O Intake and Output 01/20/17 07:00 Intake Total 1918 ml Balance 1918 ml Intake Oral 120 ml IV Total 450 ml Other 1348 ml # Voids 4 PATIENT HAS A العراقي: No General: Alert, Oriented X3, Cooperative, No acute distress Abdomen: Normal bowel sounds, Soft, No tenderness Labs Laboratory Tests Test 01/18/17 14:30 01/19/17 03:13 01/20/17 08:35 Prothrombin Time 13.5SEC (11.7-14.0) Prothromb Time International Ratio 1.1 (0.8-1.1) Sodium Level 141mmol/L (136-145) Potassium Level 3.8mmol/L (3.5-5.1) Chloride Level 109mmol/L (98-107) Carbon Dioxide Level 26mmol/L (21-32) Anion Gap 6 (6-14) Blood Urea Nitrogen 4mg/dL (7-20) Creatinine 0.6mg/dL (0.6-1.0) Estimated GFR (Cockcroft-Gault) 123.9 BUN/Creatinine Ratio 7 (6-20) Glucose Level 131mg/dL (70-99) Calcium Level 8.1mg/dL (8.5-10.1) Total Bilirubin 2.6mg/dL (0.2-1.0) 0.9mg/dL (0.2-1.0) Aspartate Amino Transf (AST/SGOT) 96U/L (15-37) 71U/L (15-37) Alanine Aminotransferase (ALT/SGPT) 211U/L (14-59) 205U/L (14-59) Alkaline Phosphatase 151U/L (46-116) 154U/L (46-116) Total Protein 5.7g/dL (6.4-8.2) 6.5g/dL (6.4-8.2) Albumin 2.8g/dL (3.4-5.0) 3.2g/dL (3.4-5.0) Albumin/Globulin Ratio 1.0 (1.0-1.7) Direct Bilirubin 0.5mg/dL (0.0-0.2) Laboratory Tests Test 01/20/17 08:35 Total Bilirubin 0.9mg/dL (0.2-1.0) Direct Bilirubin 0.5mg/dL (0.0-0.2) Aspartate Amino Transf (AST/SGOT) 71U/L (15-37) Alanine Aminotransferase (ALT/SGPT) 205U/L (14-59) Alkaline Phosphatase 154U/L (46-116) Total Protein 6.5g/dL (6.4-8.2) Albumin 3.2g/dL (3.4-5.0) Problem List Problems Medical Problems: (1) Cholelithiasis Status: Acute (2) Hyperbilirubinemia Status: Acute (3) Leukocytosis Status: Acute (4) Nausea & vomiting Status: Acute (5) Transaminitis Status: Acute Assessment/Plan s/p l/s nestor with ERCP. Labs improved OK to D/C home from surgical stand point Problems: MILLY SHEPHERD MD Jan 20, 2017 10:47
[2017-01-20 11:00] VITALS: BP 111/64
[2017-01-20] MEDS ORDERED: OXYC1TAB7 PO (11:36)
[2017-01-20] MEDS ORDERED: POLY17PO5 PO (11:36)
[2017-01-20] MEDS ORDERED: DOCU100C5 PO (11:36)
--- NOTE | 2017-01-20 11:37 | PDOC ---
PROGRESS NOTES Chief Complaint Chief Complaint Cholelithiasis s/p l/s cholecystectomy with IOC showing CBD stone History of Present Illness History of Present Illness s/p ERCP, s/p cholecystectomy dc home Vitals Vitals Vital Signs Date Time Temp Pulse Resp B/P Pulse Ox O2 Delivery O2 Flow Rate FiO2 01/20/17 08:00 Room Air 01/20/17 07:00 97.9 75 18 104/72 99 97.9 01/19/17 14:16 2 Physical Exam General: Alert, Oriented X3, Cooperative, No acute distress Heart: Regular rate, Normal S1, Normal S2, No murmurs Lungs: Clear, Other (No chest retractions were present.) Abdomen: Normal bowel sounds, Soft, No tenderness Extremities: No cyanosis, No tenderness/swelling Skin: No rashes, No breakdown, Other (mild jaundice) Labs LABS Laboratory Tests Test 01/20/17 08:35 Total Bilirubin 0.9mg/dL (0.2-1.0) Direct Bilirubin 0.5mg/dL (0.0-0.2) Aspartate Amino Transf (AST/SGOT) 71U/L (15-37) Alanine Aminotransferase (ALT/SGPT) 205U/L (14-59) Alkaline Phosphatase 154U/L (46-116) Total Protein 6.5g/dL (6.4-8.2) Albumin 3.2g/dL (3.4-5.0) Assessment and Plan Assessmemt and Plan DC home Problems Medical Problems: (1) Cholelithiasis Status: Acute (2) Hyperbilirubinemia Status: Acute (3) Leukocytosis Status: Acute (4) Nausea & vomiting Status: Acute (5) Transaminitis Status: Acute Problems: Comment Review of Relevant I have reviewed the following items ang (where applicable) has been applied. Labs Laboratory Tests Test 01/18/17 14:30 01/19/17 03:13 01/20/17 08:35 Prothrombin Time 13.5SEC (11.7-14.0) Prothromb Time International Ratio 1.1 (0.8-1.1) Sodium Level 141mmol/L (136-145) Potassium Level 3.8mmol/L (3.5-5.1) Chloride Level 109mmol/L (98-107) Carbon Dioxide Level 26mmol/L (21-32) Anion Gap 6 (6-14) Blood Urea Nitrogen 4mg/dL (7-20) Creatinine 0.6mg/dL (0.6-1.0) Estimated GFR (Cockcroft-Gault) 123.9 BUN/Creatinine Ratio 7 (6-20) Glucose Level 131mg/dL (70-99) Calcium Level 8.1mg/dL (8.5-10.1) Total Bilirubin 2.6mg/dL (0.2-1.0) 0.9mg/dL (0.2-1.0) Aspartate Amino Transf (AST/SGOT) 96U/L (15-37) 71U/L (15-37) Alanine Aminotransferase (ALT/SGPT) 211U/L (14-59) 205U/L (14-59) Alkaline Phosphatase 151U/L (46-116) 154U/L (46-116) Total Protein 5.7g/dL (6.4-8.2) 6.5g/dL (6.4-8.2) Albumin 2.8g/dL (3.4-5.0) 3.2g/dL (3.4-5.0) Albumin/Globulin Ratio 1.0 (1.0-1.7) Direct Bilirubin 0.5mg/dL (0.0-0.2) Laboratory Tests Test 01/20/17 08:35 Total Bilirubin 0.9mg/dL (0.2-1.0) Direct Bilirubin 0.5mg/dL (0.0-0.2) Aspartate Amino Transf (AST/SGOT) 71U/L (15-37) Alanine Aminotransferase (ALT/SGPT) 205U/L (14-59) Alkaline Phosphatase 154U/L (46-116) Total Protein 6.5g/dL (6.4-8.2) Albumin 3.2g/dL (3.4-5.0) Medications Current Medications Ondansetron HCl (Zofran) 4 mg 1X ONCE IV ; Start 01/16/17 at 16:15; Stop at 16:15; Status DC Fentanyl Citrate (Fentanyl 2ml Vial) 50 mcg PRN Q15MIN PRN IV PAIN GREATER THAN 3/10 Last administered on 01/16/17t 16:50; Start 01/16/17 at 16:15; Stop at 16:14; Status DC Ondansetron HCl (Zofran) 4 mg 1X ONCE IV Last administered on 01/16/17 16:47 ; Start 01/16/17 at 16:15; Stop 01/16/17 at 16:16; Status DC Ondansetron HCl (Zofran) 4 mg PRN Q8HRS PRN IV NAUSEA/VOMITING Last administered on 01/17/17 12:38; Start 01/16/17 at 18:15; Stop 01/17/17 at 18:14; Status DC Morphine Sulfate 4 mg 4 mg PRN Q2HR PRN IV PAIN Last administered on 01/17/17 11:26; Start 01/16/17 at 18:15; Stop 01/17/17 at 18:14; Status DC Sodium Chloride 1,000 ml @ 125 mls/hr Q8H IV Last administered on 01/17/17 11: 24; Start 01/16/17 at 18:09; Stop 01/17/17 at 18:08; Status DC Sodium Chloride (Iv Sodium Chloride 0.9% 1000ml Bag) 1,000 ml @ 125 mls/hr Q8H IV Last administered on 01/18/17 04:57; Start 01/17/17 at 19:00; Stop 01/18/17 at 08:07; Status DC Morphine Sulfate 2 mg PRN Q2HR PRN IV PAIN Last administered on 01/18/17 23:22 ; Start 01/17/17 at 18:45 Ondansetron HCl 4 mg 4 mg PRN Q6HRS PRN IV NAUSEA/VOMITING Last administered on 01/18/17 08:00; Start 01/18/17 at 08:00 Cefazolin Sodium/ Dextrose 50 ml @ 100 mls/hr 1X ONCE IV Last administered on 01/18/17 10:50; Start 01/18/17 at 07:00; Stop 01/18/17 at 08:08; Status DC Dextrose/Lactated Ringer's (Iv D5%-Lr) 1,000 ml @ 100 mls/hr Q10H IV Last administered on 01/19/17 23:40; Start 01/18/17 at 07:00 Ondansetron HCl (Zofran) 0.4 mg PRN Q6HRS PRN IV NAUSEA/VOMITING; Start at 08:45; Stop 01/19/17 at 08:44; Status DC Fentanyl Citrate (Fentanyl 2ml Vial) 25 mcg PRN Q5MIN PRN IV MILD PAIN; Start 01/18/17 at 08:45; Stop 01/19/17 at 08:44; Status DC Fentanyl Citrate (Fentanyl 2ml Vial) 50 mcg PRN Q5MIN PRN IV MODERATE PAIN Last administered on 01/18/17 12:58; Start 01/18/17 at 08:45; Stop 01/19/17 at 08: 44; Status DC Morphine Sulfate 1 mg 1 mg PRN Q10MIN PRN IV SEVERE PAIN; Start 01/18/17 at 08: 45; Stop 01/19/17 at 08:44; Status DC Lactated Ringer's (Iv Lactated Ringers) 1,000 ml @ 0 mls/hr Q0M IV Last administered on 01/18/17 09:58; Start 01/18/17 at 08:38; Stop 01/18/17 at 20:37; Status DC Lidocaine HCl 2 ml PRN 1X PRN ID PRIOR TO IV START; Start 01/18/17 at 08:45; Stop 01/19/17 at 08:44; Status DC Hydromorphone HCl (Dilaudid) 0.5 mg PRN Q10MIN PRN IV SEV PAIN, Second choice Last administered on 01/18/17 13:16; Start 01/18/17 at 08:45; Stop 01/19/17 at 08: 44; Status DC Prochlorperazine Edisylate (Compazine) 5 mg PACU PRN PRN IV NAUSEA, MRX1 Last administered on 01/18/17 12:14; Start 01/18/17 at 08:45; Stop 01/19/17 at 08:44; Status DC Midazolam HCl (Versed) 2 mg STK-MED ONCE .ROUTE ; Start 01/18/17 at 09:18; Stop 01/18/17 at 09:19; Status DC Fentanyl Citrate (Fentanyl 2ml Vial) 100 mcg STK-MED ONCE .ROUTE ; Start at 09:45; Stop 01/18/17 at 09:46; Status DC Rocuronium [place] (Zemuron) 50 mg STK-MED ONCE .ROUTE ; Start 01/18/17 at 09:45 ; Stop 01/18/17 at 09:46; Status DC Isoflurane 90 ml 90 ml STK-MED ONCE IH ; Start 01/18/17 at 09:45; Stop 01/18/17 at 09:46; Status DC Propofol (Diprivan) 20 ml @ As Directed STK-MED ONCE IV ; Start 01/18/17 at 09:45 ; Stop 01/18/17 at 09:46; Status DC Dexamethasone Sodium Phosphate (Decadron) 20 mg STK-MED ONCE .ROUTE ; Start 01/18 at 09:46; Stop 01/18/17 at 09:47; Status DC Ondansetron HCl (Zofran) 4 mg STK-MED ONCE .ROUTE ; Start 01/18/17 at 09:46; Stop 01/18/17 at 09:47; Status DC Lidocaine HCl (Lidocaine HCl 2% Abboject) 100 mg STK-MED ONCE .ROUTE ; Start 01/18/17 at 09:46; Stop 01/18/17 at 09:47; Status DC Cellulose 1 each STK-MED ONCE .ROUTE ; Start 01/18/17 at 10:27; Stop 01/18/17 at 10:28; Status DC Iohexol (Omnipaque 300 Mg/ml) 50 ml STK-MED ONCE .ROUTE Last administered on 10:56; Start 01/18/17 at 10:27; Stop 01/18/17 at 10:28; Status DC Bupivacaine HCl/ Epinephrine Bitart (Sensorcaine-Epi 0.25%-1:087069 Mpf) 30 ml STK-MED ONCE .ROUTE Last administered on 01/18/17 10:56; Start 01/18/17 at 10:28 ; Stop 01/18/17 at 10:29; Status DC Glucagon (Glucagen) 1 mg STK-MED ONCE .ROUTE ; Start 01/18/17 at 11:20; Stop 01/18 at 11:21; Status DC Lidocaine HCl 30 ml STK-MED ONCE .ROUTE Last administered on 01/18/17 10:56; Start 01/18/17 at 11:22; Stop 01/18/17 at 11:23; Status DC Fentanyl Citrate 100 mcg 100 mcg STK-MED ONCE .ROUTE ; Start 01/18/17 at 11:35; Stop 01/18/17 at 11:36; Status DC Propofol (Diprivan) 20 ml @ As Directed STK-MED ONCE IV ; Start 01/18/17 at 11:56 ; Stop 01/18/17 at 11:57; Status DC Morphine Sulfate 10 mg STK-MED ONCE .ROUTE ; Start 01/18/17 at 11:58; Stop at 11:59; Status DC Ketorolac Tromethamine 15 mg 15 mg Q6HRS IV Last administered on 01/20/17 06:07 ; Start 01/18/17 at 18:00; Stop 01/20/17 at 17:59 Levofloxacin/ Dextrose 100 ml @ 100 mls/hr Q24H IV Last administered on 13:28; Start 01/18/17 at 15:00; Stop 01/19/17 at 14:25; Status DC Propofol (Diprivan) 20 ml @ As Directed STK-MED ONCE IV ; Start 01/19/17 at 10:46 ; Stop 01/19/17 at 10:47; Status DC Lidocaine HCl (Lidocaine Pf 2% Vial) 5 ml STK-MED ONCE .ROUTE ; Start 01/19/17 at 10:47; Stop 01/19/17 at 10:48; Status DC Succinylcholine Chloride (Anectine) 200 mg STK-MED ONCE .ROUTE ; Start 01/19/17 at 10:47; Stop 01/19/17 at 10:48; Status DC Oxycodone/ Acetaminophen (Percocet 5/325) 1 tab PRN Q4HRS PRN PO PAIN; Start at 12:15 Oxycodone/ Acetaminophen (Percocet 10/325) 1 tab PRN Q4HRS PRN PO pain; Start 01/19/17 at 12:15 Midazolam HCl (Versed) 2 mg PRN 1X PRN IV PRIOR TO PROCEDURE; Start 01/19/17 at 12:30; Stop 01/19/17 at 17:04; Status DC Fentanyl Citrate (Fentanyl 2ml Vial) 25 mcg PRN Q5MIN PRN IV X 2 DOSES FOR PAIN ; Start 01/19/17 at 12:30; Stop 01/19/17 at 17:04; Status DC Fentanyl Citrate 50 mcg 50 mcg PRN Q5MIN PRN IV X 2 DOSES FOR PAIN; Start at 12:30; Stop 01/19/17 at 17:04; Status DC Lactated Ringer's (Iv Lactated Ringers) 1,000 ml @ 125 mls/hr Q8H IV Last administered on 01/19/17 12:56; Start 01/19/17 at 12:27; Stop 01/19/17 at 17:04; Status DC Lidocaine HCl 2 ml 1X PRN PRN ID IV START; Start 01/19/17 at 12:30; Stop at 17:04; Status DC Iohexol (Omnipaque 300 Mg/ml) 50 ml STK-MED ONCE .ROUTE ; Start 01/19/17 at 13:20 ; Stop 01/19/17 at 13:21; Status DC Fentanyl Citrate 100 mcg 100 mcg STK-MED ONCE .ROUTE ; Start 01/19/17 at 13:24; Stop 01/19/17 at 13:25; Status DC Propofol (Diprivan) 20 ml @ As Directed STK-MED ONCE IV ; Start 01/19/17 at 13:38 ; Stop 01/19/17 at 13:39; Status DC Polyethylene Glycol (miraLAX PACKET) 17 gm PRN DAILY PRN PO CONSTIPATION Last administered on 01/20/17 08:55; Start 01/19/17 at 18:15 Magnesium Hydroxide (Milk Of Magnesia) 2,400 mg 1X ONCE PO ; Start 01/20/17 at 09:00; Stop 01/20/17 at 09:01; Status DC Magnesium Hydroxide (Milk Of Magnesia) 2,400 mg PRN DAILY PRN PO CONSTIPATION; Start 01/20/17 at 08:45 Docusate Sodium (Colace) 100 mg DAILY PO Last administered on 01/20/17 08:55; Start 01/20/17 at 09:00 Bisacodyl (Dulcolax Tab) 5 mg PRN DAILY PRN PO CONSTIPATION; Start 01/20/17 at 08:45 Vitals/I & O Vital Sign - Last 24 Hours 01/19/17 01/19/17 01/19/17 01/19/17 12:39 12:41 14:16 14:25 Temp 98.6 99.6 99.6 98.6 99.6 99.6 Pulse 69 101 83 Resp B/P 136/82 111/63 Pulse Ox 100 100 98 O2 Delivery Room Air Room Air Room Air O2 Flow Rate 2 2 01/19/17 01/19/17 01/19/17 01/19/17 14:40 14:55 15:00 19:00 Temp 97.5 97.8 97.5 97.8 Pulse 93 72 94 78 Resp B/P 109/60 107/59 109/63 111/65 Pulse Ox 98 100 100 99 O2 Delivery Room Air Room Air Room Air Room Air 01/19/17 01/19/17 01/20/17 01/20/17 20:00 23:00 03:00 07:00 Temp 97.5 97.7 97.9 97.5 97.7 97.9 Pulse 87 75 75 Resp B/P 104/62 95/58 104/72 Pulse Ox 99 99 99 O2 Delivery Room Air Room Air Room Air Room Air 01/20/17 08:00 O2 Delivery Room Air Intake and Output 01/19/17 01/19/17 01/20/17 15:00 23:00 07:00 Intake Total 570 ml 1348 ml Balance 570 ml 1348 ml ESTHER WALKER MD Jan 20, 2017 11:36
--- NOTE | 2017-01-20 12:56 | PDOC ---
Subjective: Subjective: Plans to DC today, doing okay. Objective: Vital Signs: Vital Signs Date Time Temp Pulse Resp B/P Pulse Ox O2 Delivery O2 Flow Rate FiO2 01/20/17 11:00 98.1 82 18 111/64 98 Room Air 98.1 01/19/17 14:16 2 Labs: Laboratory Tests Test 01/20/17 08:35 Total Bilirubin 0.9mg/dL Direct Bilirubin 0.5mg/dL Aspartate Amino Transf (AST/SGOT) 71U/L Alanine Aminotransferase (ALT/SGPT) 205U/L Alkaline Phosphatase 154U/L Total Protein 6.5g/dL Albumin 3.2g/dL Imaging: ERCP 01/19/17: EGD ok w/in limits of scope. Major papilla seemed traumatized. CBD: no definite filling defect seen; filled to intrahepatic radicals. ES done; several passes with balloon extractor and nothing seen to exit. Occlusion cholangiogram at end of procedure and no filling defects seen. IMP: Abnormal IOC; suspect spontaneous stone passage given appearance of papilla. PE: GEN: NAD NEURO/PSYCH: A & O 3 A/P: S/p cholecystectomy w/ abnormal IOC S/p ERCP w/ sphincterotomy Elevated LFTs - improved -- DC okay per GI. Follow-up PRN. RAUL FINN Jan 20, 2017 12:56
--- NOTE | 2017-01-20 14:54 | PDOC3 ---
Discharge Summary Visit Information Date of Admission: Jan 16, 2017 Date of Discharge: Jan 20, 2017 Admitting Diagnosis: abd pain Final Diagnosis suspect spontaneous stone passage after surgery Problems Medical Problems: (1) Cholelithiasis Status: Acute (2) Hyperbilirubinemia Status: Acute (3) Leukocytosis Status: Acute (4) Nausea & vomiting Status: Acute (5) Transaminitis Status: Acute Brief Hospital Course Allergies Allergies Coded Allergies Type Severity Reaction Last Updated Verified No Known Drug Allergies 01/19/17 No Vital Signs Vital Signs Date Time Temp Pulse Resp B/P Pulse Ox O2 Delivery O2 Flow Rate FiO2 01/20/17 11:00 98.1 82 18 111/64 98 Room Air 98.1 01/19/17 14:16 2 Lab Results Laboratory Tests Test 01/19/17 03:13 01/20/17 08:35 Sodium Level 141mmol/L (136-145) Potassium Level 3.8mmol/L (3.5-5.1) Chloride Level 109mmol/L (98-107) Carbon Dioxide Level 26mmol/L (21-32) Anion Gap 6 (6-14) Blood Urea Nitrogen 4mg/dL (7-20) Creatinine 0.6mg/dL (0.6-1.0) Estimated GFR (Cockcroft-Gault) 123.9 BUN/Creatinine Ratio 7 (6-20) Glucose Level 131mg/dL (70-99) Calcium Level 8.1mg/dL (8.5-10.1) Total Bilirubin 2.6mg/dL (0.2-1.0) 0.9mg/dL (0.2-1.0) Aspartate Amino Transf (AST/SGOT) 96U/L (15-37) 71U/L (15-37) Alanine Aminotransferase (ALT/SGPT) 211U/L (14-59) 205U/L (14-59) Alkaline Phosphatase 151U/L (46-116) 154U/L (46-116) Total Protein 5.7g/dL (6.4-8.2) 6.5g/dL (6.4-8.2) Albumin 2.8g/dL (3.4-5.0) 3.2g/dL (3.4-5.0) Albumin/Globulin Ratio 1.0 (1.0-1.7) Direct Bilirubin 0.5mg/dL (0.0-0.2) Laboratory Tests Test 01/20/17 08:35 Total Bilirubin 0.9mg/dL (0.2-1.0) Direct Bilirubin 0.5mg/dL (0.0-0.2) Aspartate Amino Transf (AST/SGOT) 71U/L (15-37) Alanine Aminotransferase (ALT/SGPT) 205U/L (14-59) Alkaline Phosphatase 154U/L (46-116) Total Protein 6.5g/dL (6.4-8.2) Albumin 3.2g/dL (3.4-5.0) Brief Hospital Course Ms. Santizo is a 21 old admit with abd pain, elevatd LFT, acute nestor, taken to OR, 01/18, then LFT still up, IOC showed likely stone ERCP 01/19/17: EGD ok w/in limits of scope. CBD: no definite filling defect seen; filled to intrahepatic radicals. suspect spont passage of stone pt felt well at DC Discharge Information Condition at Discharge: Improved Follow Up: Weeks Disposition/Orders: D/C to Home Scheduled Docusate Sodium (Docusate Sodium) 100 MG PO DAILY Scheduled PRN Oxycodone Hcl/Acetaminophen (Oxycodone-Acetaminophen 5-325) 1 TAB PO PRN Q4HRS PRN PRN PAIN Polyethylene Glycol 3350 (Miralax) 17 GM PO PRN DAILY PRN PRN CONSTIPATION Patient Instructions Patient Instructions time < 30 mn ESTHER WALKER MD Jan 20, 2017 14:54
--- NOTE | 2017-01-20 16:03 | PATHOLOGY ---
PATHOLOGY REPORT * * * * * * * * FINAL DIAGNOSIS: Gallbladder, laparoscopic cholecystectomy: - Cholelithiasis. - Chronic and focal acute cholecystitis with eosinophils. COMMENT: There is no evidence of malignancy. (VERONICAM:; d/t: 01/20/17) REPORT ELECTRONICALLY SIGNED BY: Joaquim Campbell M.D. DATE/TIME: 01/20/2017 16:02 * * * * * * * * GROSS PATHOLOGY: Received in formalin labeled "Johnna Hart and gallbladder," is an 8.3 x 3.3 x 2.7 cm, intact gallbladder with pink-botello, well vascularized, and wrinkled serosal surfaces. Opening the gallbladder reveals dark green and velvety mucosa and an average wall thickness of 0.2 cm. Calculi are present and no masses are noted grossly. Parking Meter Mechanic sections from the body and fundus are submitted along with the proximal margin in cassette A1. (TTL; 01/19/2017) INITIAL CPT CODE(S): A; 50084 Professional services performed [place] [facility] [address] Technical services performed by [facility] at [address] [place] [address] [address], [place] [address]. SPECIMEN(S) RECEIVED: A.Gallbladder CLINICAL HISTORY: None given PATIENT: JOHNNA HART /AGE: 806/15/1995 (Age: 21) PATIENT #: [id number] ALT CASE #: SPECIMEN COLLECTION DATE: 01/16/2017 SPECIMEN RECEIVED DATE: 01/19/2017 [facility] - [id number] [place] [address] - PHONE: [phone] * * * END OF REPORT * * *
== END 2017-01-20 12:55 | disposition home or self-care (01) | DRG 419 ==
LOC: ER 15:37 → 4 NORTH 17:56
PROVIDERS: ADMIT Internal Medicine; ATTEND Internal Medicine
PROC: BF101ZZ Fluoroscopy of Bile Ducts using Low Osmolar Contrast (ICD-10-PCS; 2017-01-18)
PROC: 0FT44ZZ Resection of Gallbladder, Percutaneous Endoscopic Approach (ICD-10-PCS; principal; 2017-01-18 10:00)
PROC: 0F798ZZ Dilation of Common Bile Duct, Via Natural or Artificial Opening Endoscopic (ICD-10-PCS; 2017-01-19)
DX: K80.62 Calculus of gallbladder and bile duct with acute cholecystitis without obstruction (principal); D72.829 Elevated white blood cell count, unspecified; K76.0 Fatty (change of) liver, not elsewhere classified; K59.00 Constipation, unspecified; F32.9 Major depressive disorder, single episode, unspecified; F41.9 Anxiety disorder, unspecified; Z87.891 Personal history of nicotine dependence; Z83.3 Family history of diabetes mellitus; Z79.899 Other long term (current) drug therapy
CPT/HCPCS: 36415; 74300; 74328; 76705; 80053; 80074; 80076; 81001; 81025; 82248; 83690; 84702; 85027; 85610; 88304; 96374; 96375; C1726; C1782; J0330; J0690; J0780; J1100; J1170; J1610; J1885; J1956; J2250; J2270; J2405; J2704; J3010; J7030; J7120; Q9967; 99285-25